=== PATIENT | male | born 1985 | race Caucasian/White ===

== ENCOUNTER 2017-09-21 20:46 | Observation (INO) | payer SELFPAY ==
[~2017-09-21] VITALS: Ht 175.3 cm; Wt 88.0 kg
[~2017-09-21 20:46] MED LIST changes: -FOLI-68 PO; -NICO4LOZ35 BC; -THIA100T2 PO
[2017-09-21] MEDS ORDERED: FAMOTIDINE(*) 20MG/50ML PREMIX 50 ML IVPB ONE (21:05)
[2017-09-21] MEDS ORDERED: PROMETHAZINE 25 MG/ML 1 ML AMP IVP ONE (21:05)
[2017-09-21] MEDS ORDERED: NS(*) 0.9% 1000 ML BAG 1,000 ML IV ONE (21:05)
--- NOTE | 2017-09-21 21:05 | EKG ---
FACILITY: [facility] [place] PATIENT NAME: DAVON MCKENZIE : [id number] MR: [id number] V: [id number] EXAM DATE: ORDERING PHYSICIAN: CARLOS ALBERTO BOWER TECHNOLOGIST: RADHA Bailey Reason : CARDIAC Blood Pressure : / mmHG Vent. Rate : 099 BPM Atrial Rate : 099 BPM P-R Int : 156 ms QRS Dur : 102 ms QT Int : 350 ms P-R-T Axes : 059 024 033 degrees QTc Int : 449 ms Sinus rhythm Decreased R wave progression anteriorly Nonspecific ST findings No previous ECGs available Confirmed by SOSA PEREZ ([id number]) on 09/22/2017 5:34:21 AM Referred By: Confirmed By:SOSA PEREZ
--- NOTE | 2017-09-21 21:16 | ER Report ---
History and Physical Time Seen By MD: 20:59 Hx. of Stated Complaint: L side chest pain and arm pain, vomiting blood past 3 days, drank 750 ml vodka today HPI/ROS CHIEF COMPLAINT: Left-sided chest pain HISTORY OF PRESENT ILLNESS: 32-year-old male p/w L chest pain and presents with left-sided chest L arm numbness assoc with hematemesis and coffee grounds appearance, black stools for unknown duration. Admits to drinking vodka/ whiskey "anything I can get my hands on" 750mL/day for 10 years. Admits to prior detox. Does not want detox today. Here due to nausea. c/o anxiety, ptsd , ocd, and states he lost his son. REVIEW OF SYSTEMS: Constitutional: No fever, no chills. Eyes: No discharge. ENT: "bleeding from my throat" Cardiovascular: no palpitations Respiratory: No cough, no shortness of breath. Gastrointestinal: otherwise negative Genitourinary: No hematuria. Musculoskeletal: No back pain. Skin: No rashes. Neurological: No headache. Allergies: Coded Allergies: Penicillins (Verified Allergy, Unknown, 06/11/15) amoxicillin (Verified Allergy, Unknown, 06/11/15) Home Meds Reported Medications Multivits,Th W-Fe,Other Min (THERA-M) 1 Each Tablet, 1 EACH PO 06/13/15 Trazodone Hcl (TRAZODONE HCL) 150 Mg Tablet, 150-300 MG PO QHS Y for INSOMNIA, # 60 1 Refill TAKE ONE TO TWO TABLETS EACH NIGHT NEEDED FOR INSOMNIA. 06/13/15 Hx Smoking: Yes Smoking Status: Current: Every Day Smoker Exposure to Second Hand Smoke?: Yes Hx Substance Use Disorder: Yes (IN THE PAST ) Hx Alcohol Use: Yes Constitutional Vital Sign - Last 24 Hours 09/21/17 09/21/17 09/21/17 09/21/17 20:46 20:47 21:01 21:16 Temp 99.8 Pulse 99 98 99 92 Resp 16 26 13 B/P (MAP) 144/99 Pulse Ox 94 95 96 94 O2 Delivery Room Air 09/21/17 09/21/17 09/21/17 09/21/17 21:19 21:31 21:46 22:01 Pulse 95 94 88 Resp 21 25 19 B/P (MAP) 134/104 (114) Pulse Ox 94 94 92 2/5/18 2/5/18 2/5/18 2/5/18 22:16 22:31 22:36 22:51 Pulse 88 92 90 93 Resp 12 14 15 16 Pulse Ox 94 93 96 94 09/21/17 09/21/17 09/21/17 09/21/17 23:06 23:13 23:14 23:19 Pulse 90 88 Resp 9 B/P (MAP) 132/78 (96) 110/81 (91) Pulse Ox 91 95 09/21/17 23:30 B/P (MAP) 112/89 (97) Physical Exam General Appearance: The patient is alert, has no immediate need for airway protection and no signs of toxicity. He appears intoxicated with alcohol on the breath Eyes: Pupils equal and round no pallor or injection. ENT, Mouth: Mucous membranes are moist. Respiratory: There are no retractions, lungs are clear to auscultation. Cardiovascular: Regular rate and rhythm. No murmurs gallops or rubs Gastrointestinal: Abdomen is soft and tender only in the epigastric region, no masses, bowel sounds normal. Neurological: Normal Skin: Warm and dry, no rashes. Musculoskeletal: Neck is supple non tender. Extremities are nontender, nonswollen and have full range of motion. No edema DIFFERENTIAL DIAGNOSIS: After history and physical exam differential diagnosis was considered for alcoholism alcoholic gastritis Che-Dumas syndrome upper GI bleed due to esophageal varices or other Medical Decision Making Data Points Result Diagram: 09/21/17199909/21/171999 Laboratory Hematology Test 09/21/17 20:00 Red Blood Count 6.13 M/uL (4.00-5.60) Mean Corpuscular Volume 93.6 fL (80.0-96.0) Mean Corpuscular Hemoglobin 32.6 pg (26.0-33.0) Mean Corpuscular Hemoglobin Concent 34.8 g/dL (32.0-36.0) Red Cell Distribution Width 15.4 % (11.5-14.5) Mean Platelet Volume 7.8 fL (7.2-11.1) Neutrophils (%) (Auto) 65.0 % (39.4-72.5) Lymphocytes (%) (Auto) 25.2 % (17.6-49.6) Monocytes (%) (Auto) 7.7 % (4.1-12.4) Eosinophils (%) (Auto) 1.3 % (0.4-6.7) Basophils (%) (Auto) 0.8 % (0.3-1.4) Nucleated RBC Relative Count (auto) 0.1 /100WBC Neutrophils # (Auto) 3.6 K/uL (2.0-7.4) Lymphocytes # (Auto) 1.4 K/uL (1.3-3.6) Monocytes # (Auto) 0.4 K/uL (0.3-1.0) Eosinophils # (Auto) 0.1 K/uL (0.0-0.5) Basophils # (Auto) 0.0 K/uL (0.0-0.1) Nucleated RBC Absolute Count (auto) 0.00 K/uL Sodium Level 143 mmol/L (137-145) Potassium Level 3.7 mmol/L (3.5-5.0) Chloride Level 99 mmol/L (98-107) Carbon Dioxide Level 25 mmol/L (22-30) Blood Urea Nitrogen 4 mg/dl (9-21) Creatinine 1.00 mg/dl (0.66-1.25) Glomerular Filtration Rate Calc > 60.0 Random Glucose 124 mg/dl (75-110) Calcium Level 9.1 mg/dl (8.4-10.2) Total Bilirubin 1.1 mg/dl (0.2-1.3) Aspartate Amino Transf (AST/SGOT) 89 U/L (0-35) Alanine Aminotransferase (ALT/SGPT) 116 U/L (0-56) Alkaline Phosphatase 116 U/L (0-126) Troponin I < 0.012 ng/ml B-Type Natriuretic Peptide < 5 pg/ml (0-100) Total Protein 8.7 gm/dl (6.3-8.2) Albumin 4.5 g/dl (3.5-5.0) Lipase 87 U/L (23-300) Serum Alcohol 305 mg/dl Chemistry Test 09/21/17 20:00 White Blood Count 5.5 k/uL (4.5-11.0) Red Blood Count 6.13 M/uL (4.00-5.60) Hemoglobin 20.0 g/dL (14.0-18.0) Hematocrit 57.4 % (42.0-52.0) Mean Corpuscular Volume 93.6 fL (80.0-96.0) Mean Corpuscular Hemoglobin 32.6 pg (26.0-33.0) Mean Corpuscular Hemoglobin Concent 34.8 g/dL (32.0-36.0) Red Cell Distribution Width 15.4 % (11.5-14.5) Platelet Count 225 K/uL (150-450) Mean Platelet Volume 7.8 fL (7.2-11.1) Neutrophils (%) (Auto) 65.0 % (39.4-72.5) Lymphocytes (%) (Auto) 25.2 % (17.6-49.6) Monocytes (%) (Auto) 7.7 % (4.1-12.4) Eosinophils (%) (Auto) 1.3 % (0.4-6.7) Basophils (%) (Auto) 0.8 % (0.3-1.4) Nucleated RBC Relative Count (auto) 0.1 /100WBC Neutrophils # (Auto) 3.6 K/uL (2.0-7.4) Lymphocytes # (Auto) 1.4 K/uL (1.3-3.6) Monocytes # (Auto) 0.4 K/uL (0.3-1.0) Eosinophils # (Auto) 0.1 K/uL (0.0-0.5) Basophils # (Auto) 0.0 K/uL (0.0-0.1) Nucleated RBC Absolute Count (auto) 0.00 K/uL Glomerular Filtration Rate Calc > 60.0 Calcium Level 9.1 mg/dl (8.4-10.2) Total Bilirubin 1.1 mg/dl (0.2-1.3) Aspartate Amino Transf (AST/SGOT) 89 U/L (0-35) Alanine Aminotransferase (ALT/SGPT) 116 U/L (0-56) Alkaline Phosphatase 116 U/L (0-126) Troponin I < 0.012 ng/ml B-Type Natriuretic Peptide < 5 pg/ml (0-100) Total Protein 8.7 gm/dl (6.3-8.2) Albumin 4.5 g/dl (3.5-5.0) Lipase 87 U/L (23-300) Serum Alcohol 305 mg/dl Toxicology Test 09/21/17 20:00 Serum Alcohol 305 mg/dl EKG/Imaging EKG Interpretation EKG was performed at 20:52 September 21 2017 and read by me normal sinus rhythm with ventricular rate of 99 normal LA QRS and QTc intervals no ST or T-wave changes to suggest ischemia or infarction overall impression: Normal EKG. ED Course/Re-evaluation ED Course Plan of care was discussed prior orders placed. Patient's states he does not want an NG tube at this time. I explained to him the benefits of the NG tube. Patient agreed to NG tube and 2 attempts were made and were unsuccessful per nursing staff. Patient refused further attempts due to pain. Patient requests nausea medicine for ongoing nausea. 09/21/2017 9:23:54 pm case discussed with Dr. Jose, endoscopist and surgeon conveyor maintenance mechanic. He saw the Patient in the ER. Patient refused endoscopy at this time. Brother arrived and explained that patient was suicidal with a machete at home and threats to use it on himself as well as other suicidal thoughts and intentions. Behavioral health was contacted to evaluate the patient. Brother called in after leaving and states patient is suicidal and has plan to use machete he has been unable to make him feel better despite taking to him to his house and Him to listen to music. He states that patient needs a psychiatric evaluation. The patient was seen by behavioral health specialist Von and the case was discussed with Dr. Yang. He will be difficult to clear psychiatrically due to recent alcohol intoxication. The patient contracts for safety and denies suicidality at this time. He is currently voluntary and not on ELIUD. The case was discussed with Angelo Hoyos who plans ICU admission for one- to-one and will continue treatment for alcoholic gastritis, hemoptysis and chest pain until medically cleared. Decision to Disposition Date: Sep 22, 2017 Decision to Disposition Time: 00:59 Depart Departure Latest Vital Signs Vital Signs Date Time Temp Pulse Resp B/P (MAP) Pulse Ox O2 Delivery O2 Flow Rate FiO2 09/21/17 23:30 112/89 (97) 09/21/17 23:19 88 95 09/21/17 23:06 9 09/21/17 20:47 99.8 Room Air Impression: Primary Impression: Alcohol intoxication Additional Impressions: Alcohol use disorder, severe, in controlled environment Depression with suicidal ideation Suicidal behavior Hemoptysis, unspecified Alcoholic gastritis with bleeding Condition: Improved Disposition: Admitted from ER Problem Qualifiers Primary Impression: Alcohol intoxication Complication of substance-induced condition: with unspecified complication Qualified Codes: F10.929 - Alcohol use, unspecified with intoxication, unspecified Additional Impressions: Suicidal behavior Attempted self-injury: without attempted self-injury Qualified Codes: R46.89 - Other symptoms and signs involving appearance and behavior CARLOS ALBERTO BOWER MD Sep 21, 2017 21:16
[2017-09-21 21:17] LABS: PLATELET COUNT, AUTOMATED 225 K/uL (150-450)
--- NOTE | 2017-09-21 22:52 | RADIOLOGY IMAGING REPORT ---
FACILITY: [facility] PATIENT NAME: Chilo Yates : 1985 MR: [id number] V: [id number] EXAM DATE: ORDERING PHYSICIAN: CARLOS ALBERTO BOWER TECHNOLOGIST: Location: [facility] [place] Patient: Chilo Yates : 1985 Visit/Account:[id number] Date of Sevice: 09/21/2017 CHEST SINGLE AP History: Chest pain FINDINGS: Comparison studies: None. Tubes and Lines: None. Lungs and pleura: Well aerated. No evidence of focal consolidation or pleural effusions. Mediastinum: normal. Cardiac silhouette: normal . Osseous structures: Unremarkable for age . IMPRESSION: Normal chest Report Dictated By: Glenn You MD at 09/21/2017 10:47 PM Report E-Signed By: Glenn You MD at 09/21/2017 10:48 PM [id number]
[2017-09-21] MEDS: GI COCKTAIL 60 ML BTL PO PRN ×2 (23:25→23:58)
[2017-09-21] MEDS ORDERED: ATRO/SCOPOL/HYOSCY/PB 5 ML ELX PO ONE (23:30)
[2017-09-21] MEDS ORDERED: MAG HYD/AL HYD/SIMETH 30ML UDC PO ONE (23:30)
[2017-09-21] MEDS ORDERED: LIDOCAINE 2% VISC SLN 15ML UDC PO ONE (23:30)
[2017-09-21] MEDS ORDERED: ONDANSETRON 4 MG ODT TABDP SL ONE (23:55)
[2017-09-22] VITALS (18 sets, daily range): BP systolic 107–131; BP diastolic 69–87; Ht 175.3 cm; Wt 88.0 kg
[2017-09-22] MEDS ORDERED: GI COCKTAIL 60 ML BTL PO PRN ×3 (00:55→07:45)
[2017-09-22] MEDS ORDERED: DIAZEPAM 10 MG TAB PO PRN (02:10)
[2017-09-22] MEDS ORDERED: PANTOPRAZOLE SOD 40 MG IV VIAL IVP ONE (02:10)
[2017-09-22] MEDS ORDERED: NS(*) 0.9% 1000 ML BAG 1,000 ML IV PRN (02:10)
--- NOTE | 2017-09-22 02:26 | History & Physical ---
History of Present Illness Chief Complaint Chest pain/nausea and vomiting History of Present Illness 32yo male with PMHx significant for PTSD and chronic alcoholism. He reports having periodic left chest pain over past few days. It is described as sharp, non-radiating. He has been having intermittent nausea with vomiting. His emesis has been bilious with occasional streaks/flecks of bright red blood. He denies any black or bloody stools. He has been drinking "anything" (whisky, vodka, beer ) heavily for past 10-12 years. He reports having a short period of abstinence for "maybe a year". He denies any withdrawal seizures, but has had significant withdrawal symptoms. It was reported to me that Mr. Yates was also suicidal, but he vehemently denies ever making any statements of suicide intent or thought. He states he would not hurt or kill himself. He was evaluated in the ER and found to have BAL 305 as well as modest elevation of his LFTs. His troponin and lipase are normal. His EKG and CXR are also unremarkable. He was recommended for admission. History Problems: (1) Alcohol abuse Status: Chronic (2) Alcohol withdrawal Status: Acute Home Meds Reported Medications Multivits,Th W-Fe,Other Min (THERA-M) 1 Each Tablet, 1 EACH PO 06/13/15 Trazodone Hcl (TRAZODONE HCL) 150 Mg Tablet, 150-300 MG PO QHS Y for INSOMNIA, # 60 1 Refill TAKE ONE TO TWO TABLETS EACH NIGHT NEEDED FOR INSOMNIA. 06/13/15 Allergies: Coded Allergies: Penicillins (Verified Allergy, Unknown, 06/11/15) amoxicillin (Verified Allergy, Unknown, 06/11/15) Patient History: Alcoholism in family FHx: suicide Uncle OCD (obsessive compulsive disorder) MOTHER Hx Smoking: No Exposure to Second Hand Smoke?: Yes Tobacco Used: Smokeless Caffeine Intake: Soda Caffeine/Cups Per Day: 3 Hx Alcohol Use: Yes Hx Substance Use Disorder: Yes Social Drug Use: Currently Social Drugs: Marijuana Review of Systems Constitutional: No Fever, No Chills, No Night Sweats Eyes: No Vision Change, No Loss of Vision Cardiovascular: Chest Pain, Palpitations Respiratory: No Shortness of Breath, No Cough Gastrointestinal: Nausea, Vomiting, No Diarrhea, No Dysphagia, Hematemesis, No Hematochezia, No Melena, Abdominal Pain Genitourinary: No Dysuria, No Hematuria Musculoskeletal: No Pain, No Sprain, No Impaired Mobility Psychiatric: Depression, Anxiety Exam Vital Signs Vital Signs Date Time Temp Pulse Resp B/P (MAP) Pulse Ox O2 Delivery O2 Flow Rate FiO2 09/21/17 23:30 112/89 (97) 09/21/17 23:19 88 95 09/21/17 23:06 9 09/21/17 20:47 99.8 Room Air General Appearance: Alert, Awake, No Acute Distress Neuro: No Gross deficits Eyes: PERRLA ENT: Oropharynx Clear Neck: No Masses Cardiovascular: Regular Rate and Rhythm, No Edema, No JVD Respiratory: Clear to Auscultation Chest: No Tenderness GI: Abd Soft and Non-Tender (BS present) : No CVA Tenderness Lymph: No Adenopathy Musculoskeletal: No Weakness/Pain Extremities: Warm, Perfused Integumentary: Skin Intact without Lesion / Mass Psych: Alert & Oriented X3 Medical Decision Making Data Points Result Diagram: 09/21/17199909/21/171999 Item Value Date Time Lipase 87 U/L 09/21/171999 Albumin 4.5 g/dl 09/21/171999 Total Protein 8.7 gm/dl H 09/21/171999 B-Type Natriuretic Peptide < 5 pg/ml 09/21/171999 Troponin I < 0.012 ng/ml 09/21/171999 Alkaline Phosphatase 116 U/L 09/21/171999 Alanine Aminotransferase (ALT/SGPT) 116 U/L H 09/21/171999 Aspartate Amino Transf (AST/SGOT) 89 U/L H 09/21/171999 Total Bilirubin 1.1 mg/dl 09/21/171999 Calcium Level 9.1 mg/dl 09/21/171999 Serum Alcohol 305 mg/dl 09/21/171999 EKG / Imaging EKG Interpretation Sinus rhythm with decreased R wave progression anteriorly no acute appearing ST- T findings Imaging PATIENT NAME: Chilo Yates : 1985 MR: [id number] V: [id number] EXAM DATE: ORDERING PHYSICIAN: CARLOS ALBERTO BOWER TECHNOLOGIST: Location: [facility] [place] Patient: Chilo Yates : 1985 Visit/Account:[id number] Date of Sevice: 09/21/2017 CHEST SINGLE AP History: Chest pain FINDINGS: Comparison studies: None. Tubes and Lines: None. Lungs and pleura: Well aerated. No evidence of focal consolidation or pleural effusions. Mediastinum: normal. Cardiac silhouette: normal . Osseous structures: Unremarkable for age . IMPRESSION: Normal chest Report Dictated By: Glenn You MD at 09/21/2017 10:47 PM Report E-Signed By: Glenn You MD at 09/21/2017 10:48 PM [id number] Assessment and Plan Problems: (1) Suicidal ideation Status: Acute Assessment & Plan: He denies any suicidal intentions or thoughts at this time. Will monitor closely. May need to have psychiatry evaluate him to clear all of this up. (2) Alcohol abuse Status: Chronic Assessment & Plan: We discussed possible detox and he is unsure if he wants to quit. Will place him on CIWA protocol and use Valium if needed. Will also give B vitamin supplements. Will need to have the substance abuse counselor see him. (3) Chest pain Status: Acute Assessment & Plan: His initial evaluation is unremarkable. Will recheck troponin. He most likely has some alcoholic gastritis responsible for his pain as well as the nausea/vomiting with streaks of blood. He was seen by Dr. Jose in the ER regarding possible endoscopy, but the patient refused. Will place him on Protonix and Carafate. Start with clear liquid diet. Watch closely. Venous Thromboembolism Antithrombotics Is Pt On Any Antithrombotics?: No Prophylaxis Tx Contraindicated Pharmacological Contraindicati: Active Bleeding (hematemesis) Exam Sepsis Risk: No Definite Risk SOSA PEREZ MD Sep 22, 2017 02:25
[2017-09-22 02:28] LABS: PLATELET COUNT, AUTOMATED 184 K/uL (150-450)
[2017-09-22] MEDS: PROMETHAZINE 25 MG/ML 1 ML AMP IVP PRN ×2 (02:41→08:29)
[2017-09-22] MEDS: SUCRALFATE 1 GM TAB PO SCH ×2 (06:13→10:21)
[2017-09-22 07:20] LABS: PLATELET COUNT, AUTOMATED 166 K/uL (150-450)
[2017-09-22] MEDS: DIAZEPAM 10 MG TAB PO PRN ×3 (07:30→10:21)
[2017-09-22] MEDS ORDERED: FOLIC ACID 1 MG TAB PO SCH (09:00)
[2017-09-22] MEDS ORDERED: THIAMINE HCL 200 MG/2 ML INJ IVP SCH (09:00)
[2017-09-22] MEDS ORDERED: PANTOPRAZOLE SOD 40 MG TABEC PO SCH (09:00)
--- NOTE | 2017-09-22 09:49 | Hospitalist Depart ---
Discharge Summary Reason for Hosp/Final Diag: (1) Suicidal ideation Status: Acute Hospital Course & Plan: He denies any suicidal intentions or thoughts at this time. (2) Alcohol abuse Status: Chronic Hospital Course & Plan: [facility] He should continue on thiamine and CIWA protocol. (3) Chest pain Status: Acute Hospital Course & Plan: His EKG and troponin series were negative. Departure Latest Vital Signs Vital Signs 09/22/17 09/22/17 09/22/17 09/22/17 07:00 07:30 09:00 09:27 Temp 97.7 Pulse 95 Resp 20 B/P (MAP) 110/73 (85) Pulse Ox 94 O2 Delivery Room Air O2 Flow Rate 1.0 Weight (Pounds): 194 Result Diagram: 09/22/1708 09/22/17707 Condition: Improved Discharge: [facility] Discharge Instructions Home Meds Reported Medications Multivits,Th W-Fe,Other Min (THERA-M) 1 Each Tablet, 1 EACH PO 06/13/15 Trazodone Hcl (TRAZODONE HCL) 150 Mg Tablet, 150-300 MG PO QHS Y for INSOMNIA, # 60 1 Refill TAKE ONE TO TWO TABLETS EACH NIGHT NEEDED FOR INSOMNIA. 06/13/15 Diet: Regular Activity: As Tolerated Copies to: MANDI SALINAS MD Venous Thromboembolism Antithrombotics Is Pt On Any Antithrombotics?: No JANEE ARAGON DO Sep 22, 2017 09:49
[2017-09-22] MEDS ORDERED: INFLUENZA VIRUS VAC 0.5 ML SYR IM ONLY ONE ×2 (10:00→10:15)
== END 2017-09-22 10:51 ==
LOC: ER 21:05 → ICU 09-22 00:33 → INTOOBSV 09-22 00:33
PROVIDERS: ADMIT Internal Medicine; ATTEND Internal Medicine
DX: F10.229 Alcohol dependence with intoxication, unspecified (principal); F32.9 Major depressive disorder, single episode, unspecified; R04.2 Hemoptysis; R46.89 Other symptoms and signs involving appearance and behavior; K29.21 Alcoholic gastritis with bleeding; Z23 Encounter for immunization
CPT/HCPCS: 36415; 71045; 80320; 83690; 83880; 84484; 85025; 90471; 90674; 93005; 96365; 96375; 99285; C9113; G0378; J2550; J3411; J3490; J7030; S0119; 82040; 82247; 82310; 82374; 82435; 82565; 82947; 84075; 84132; 84155; 84295; 84450; 84460; 84520

== ENCOUNTER → 2017-09-21 | Outpatient (CLI) | payer SELFPAY ==
[~2017-09-21] MED LIST: CLIN300C99 PO; FOLI-68 PO; HYDR25CA13 PO; IBUP200C74 PO; MIRT-1 PO; MIRT-17 PO; MULT-1379 PO; MULT-7 PO; NICO4LOZ35 BC; OXYC-865 PO; THIA100T2 PO; TRAZ-163 PO; TRAZ150T8 PO
[2017-09-22 08:30] VITALS: BMI 28.6
== END ==
LOC: AMB 20:24
PROVIDERS: ATTEND Nurse Practitioner
DX: R07.9 Chest pain, unspecified (principal); F10.129 Alcohol abuse with intoxication, unspecified; R11.10 Vomiting, unspecified
CPT/HCPCS: A0425; A0427

== ENCOUNTER 2017-09-22 10:51 | Inpatient (IN) | payer SELFPAY ==
[~2017-09-22] VITALS: Ht 177.8 cm; Wt 90.7 kg
[2017-09-22 08:30] VITALS: Ht 177.8 cm; Wt 90.7 kg
[2017-09-22 11:00] VITALS: BP 122/89
[2017-09-22 12:05] VITALS: BP 120/82
[2017-09-22 13:34] VITALS: BP 122/84
[2017-09-22] MEDS: DIAZEPAM 10 MG TAB PO PRN ×2 (13:46→19:36)
[2017-09-22] MEDS: NICOTINE POLACRILEX 4 MG LOZG PO PRN (13:46)
[2017-09-22 14:30] VITALS: BP 102/88
[2017-09-22 19:13] VITALS: BP 129/89
[2017-09-23 03:15] VITALS: BP 121/84
[2017-09-23] MEDS: DIAZEPAM 10 MG TAB PO PRN ×5 (03:27→21:08)
[2017-09-23] MEDS: MULTIVITAMINS PO SCH (08:09)
[2017-09-23] MEDS: THIAMINE HCL 100 MG TAB PO SCH (08:09)
[2017-09-23] MEDS: FOLIC ACID 1 MG TAB PO SCH (08:09)
[2017-09-23 08:20] VITALS: BP 118/88
[2017-09-23 13:00] VITALS: BP 130/90
[2017-09-23] MEDS: NICOTINE POLACRILEX 4 MG LOZG PO PRN ×2 (15:20→21:08)
[2017-09-23 15:59] VITALS: BP 148/84
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
[2017-09-23 20:30] VITALS: BP 119/76
[2017-09-24] MEDS: DIAZEPAM 10 MG TAB PO PRN ×3 (03:19→05:37)
[2017-09-24 03:21] VITALS: BP 135/99
[2017-09-24] MEDS: THIAMINE HCL 100 MG TAB PO SCH (08:13)
[2017-09-24] MEDS: FOLIC ACID 1 MG TAB PO SCH (08:13)
[2017-09-24] MEDS: MULTIVITAMINS PO SCH (08:13)
[2017-09-24 08:25] VITALS: BP 124/84
[2017-09-24] MEDS ORDERED: FOLI-68 PO (11:24)
[2017-09-24] MEDS ORDERED: THIA100T2 PO (11:25)
[2017-09-24] MEDS ORDERED: NICO4LOZ35 BC (11:26)
[2017-09-24 12:36] VITALS: BP 116/82
--- NOTE | 2017-09-25 17:52 | DISCHARGE SUMMARY ---
DATE OF ADMISSION: September 22, 2017 DATE OF DISCHARGE: September 24, 2017 FINAL DIAGNOSES 1. Alcohol use disorder, severe. 2. Alcohol withdrawal, considered complete. 3. Substance-induced mood disorder, considered resolved. The patient has a supportive family. 4. Ongoing social stressors related to alcohol use disorder. For this discharge summary, this patient was seen in the a.m. of September 24, 2017, at approximately 1000 hours. REASON FOR ADMISSION This is a 32-year-old male who is known from previous [facility] admissions under similar circumstances, most recently in late 2014. The patient at this time came to the Emergency Room with chest pain and complaints of hematemesis. The patient was evaluated and put in the ICU for overnight observation. The patient was cleared medically. The patient then agreed to voluntary admission to [facility] to complete alcohol withdrawal. During the patient's stay, the patient was calm, cooperative, polite, and engaging well with the therapist and this provider. The patient was also allowing family members who had concerns of the patient's intent to harm himself while intoxicated be involved in his treatment. This included the patient's brother, the patient's brother's fiance, and the patient's mother. The patient's alcohol withdrawal was considered moderate to severe in nature, treated with diazepam per [facility] protocol. The patient's withdrawal was treated to completion. It was known that the patient's mood continued to improve rapidly in the absence of alcohol. The patient was strongly encouraged to enter residential rehab; however, the patient declined it at this time. However , he agreed to outpatient services through [facility] and to abstain from alcohol. The patient was no longer having suicidal ideations. Mood was improved and alcohol withdrawal considered complete. The patient was discharged to home. PHYSICAL EXAMINATION Please see ICU and emergency room notes. GENERAL: Overall, a 32-year-old male in no acute medical distress. VITAL SIGNS: At time of admission, temperature 99.8, pulse 98, respiratory rate 16, blood pressure 144/99, pulse oximetry 95% on room air. At time of discharge, vital signs showed temperature 97.5, pulse 76, respiratory rate 18, blood pressure 116/82, and pulse oximetry 97% on room air. LABORATORY DATA On September 21, 2017, red blood cells shown to be elevated at 6.13, hemoglobin and hematocrit elevated at 20.0 and 57.4, normal platelet count in normal limits at 224 at time of admission, and MCV and MCH also in normal limits. Chemistry panel on September 21, 2017, notable for AST elevated to 89 and ALT elevated at 116. Toxicology screen notable for serum alcohol level of 305 upon admission. MENTAL STATUS EXAMINATION AT TIME OF DISCHARGE GENERAL APPEARANCE, BEHAVIOR, AND ATTITUDE: This is a cooperative, polite, 32- year-old male in no acute distress. No psychomotor agitation or retardation. No bizarre mannerisms or tics. The patient is making good eye contact and interacting well with family members, this provider, and treatment team staff. SPEECH: Within normal limits. Regular rate, rhythm, volume, and tone. MOOD: Described as improved and good. AFFECT: Full at times and mood congruent. THOUGHT PROCESSES: Logical, goal directed. No loose associations or flight of ideas. THOUGHT CONTENT: Free of auditory or visual hallucinations, ideas of reference , thought broadcasting, delusions, obsessions, or compulsions. The patient is adamantly denying suicidal or homicidal ideation. SENSORIUM: Clear. COGNITION: Alert and oriented to person, place, time, and situation. MEMORY: Immediate, recent, and remote estimated intact. INTELLIGENCE: Average based on interview. INSIGHT AND JUDGMENT: Considered grossly intact in the absence of alcohol use and appropriate for ongoing outpatient care. RESULTS OF TESTS AND IMAGING Chest x-ray on September 21, 2017, was unremarkable. EKG, please see electronic report. Overall unremarkable as well. CONSULTATIONS None. TREATMENT The patient received medications and participated in individual and group therapy. HOSPITAL COURSE The patient voluntarily transferred from the ICU to [facility] to complete alcohol withdrawal. The patient did not want to attend residential treatment at this time; however, the patient did agree to abstain and further outpatient support. The patient was exhibiting no parasuicidal behaviors on the unit. The patient is adamantly denying any suicidal ideation, and the patient took an active role in his treatment. CONDITION ON DISCHARGE Stable, considered minimal risk to himself or others and appropriate for ongoing outpatient care. DISPOSITION The patient is discharged to home. He would follow up with outpatient medication evaluation and therapy management. The patient would abstain from all alcohol and consider residential rehab. He was given the crisis line should symptoms return. DISCHARGE MEDICATIONS At time of discharge, the patient would remain on: 1. Thiamine 100 mg daily. 2. Folic acid 1 mg daily. 3. Multivitamin with minerals daily. 4. He could use [id number] nicotine replacement for smoking cessation. Risks, benefits, and alternatives of above discharge plan were discussed. Informed consent was given to proceed with the above discharge plan by this competent patient and the patient's family members present at time of discharge. Crisis line was given should symptoms return. MTDD
== END 2017-09-24 14:32 | disposition home or self-care (01) | DRG 897 ==
LOC: UNDOADMIN 10:51 → BHS 10:51
PROVIDERS: ADMIT Psychiatry & Neurology Psychiatry; ATTEND Psychiatry & Neurology Psychiatry
DX: F10.239 Alcohol dependence with withdrawal, unspecified (principal); F10.24 Alcohol dependence with alcohol-induced mood disorder; Y90.8 Blood alcohol level of 240 mg/100 ml or more; Z88.0 Allergy status to penicillin

== ENCOUNTER 2018-03-15 21:35 | Emergency (ER) | payer SELFPAY ==
[2017-09-22 08:30] VITALS: Wt 90.7 kg
[~2018-03-15 21:35] MED LIST changes: +FOLI-68 PO; +NICO4LOZ35 BC; +THIA100T2 PO; -TRAZ-163 PO; +TRAZ100T31 PO
--- NOTE | 2018-03-15 21:45 | ER Report ---
History and Physical Time Seen By MD: 21:44 HPI/ROS CHIEF COMPLAINT: leg pain HISTORY OF PRESENT ILLNESS: This is a 33 year old male. He has had some pain in the medial right thigh for a couple of days now. Does not remember an injury. Pain worse with movement. Worried about possible blood clot. Normal sensation. No swelling. No shortness of breath or chest pain. Allergies: Coded Allergies: Penicillins (Verified Allergy, Unknown, 03/15/18) amoxicillin (Verified Allergy, Unknown, 03/15/18) Uncoded Allergies: SHELLFISH (Allergy, Mild, 09/22/17) UNCOOKED FRUIT (Allergy, Mild, 09/22/17) Home Meds Active Scripts Oxycodone Hcl/Acetaminophen (PERCOCET 5-325 MG TABLET) 1 Each Tablet, 1 EACH PO Q4H Y for PAIN, #12 TAB 0 Refills Prov:STEPHEN JEREZ MD 03/15/18 Discontinued Reported Medications Nicotine Polacrilex (NICOTINE LOZENGE) 4 Mg Lozenge, 4 MG BC Q1-2H Y for NICOTINE REPLACEMENT, LOZENGE 09/24/17 Thiamine Mononitrate (VITAMIN B-1) 100 Mg Tablet, 100 MG PO QDAY 09/24/17 Folic Acid (FOLIC ACID) 1 Mg Tablet, 1 MG PO QDAY, TAB 09/24/17 Multivits,Th W-Fe,Other Min (THERA-M) 1 Each Tablet, 1 EACH PO DAILY 06/13/15 Reviewed Nurses Notes: Yes Exposure to Second Hand Smoke?: No Hx Substance Use Disorder: Yes (IN THE PAST ) Hx Alcohol Use: Yes Constitutional Vital Sign - Last 24 Hours 03/15/18 21:38 Temp 97.4 Pulse 92 Resp 16 B/P (MAP) 137/96 Pulse Ox 98 O2 Delivery Room Air Physical Exam General Appearance: The patient is alert, has no immediate need for airway protection and no current signs of toxicity. Eyes: Pupils equal and round no injection. ENT: Normal oral mucosa. Moist mucous membranes. Respiratory: Lungs clear to auscultation. Cardiac: regular rate and rhythm. Normal peripheral pulses and cap refill. Gastrointestinal: No abdominal tenderness. Soft, nondistended. Musculoskeletal: Pain wtih palpation of inner thigh. Normal range of motion. Skin: No rashes or lesions. DIFFERENTIAL DIAGNOSIS: After history and physical exam differential diagnosis was considered for leg pain, concern for possible blood clot versus musculoskeletal strain. Medical Decision Making Data Points Result Diagram: 03/15/18222103/15/182221 Laboratory Hematology Test 03/15/18 22:22 Red Blood Count 5.54 M/uL (4.00-5.60) Mean Corpuscular Volume 91.7 fL (80.0-96.0) Mean Corpuscular Hemoglobin 32.4 pg (26.0-33.0) Mean Corpuscular Hemoglobin Concent 35.4 g/dL (32.0-36.0) Red Cell Distribution Width 14.4 % (11.5-14.5) Mean Platelet Volume 7.8 fL (7.2-11.1) Neutrophils (%) (Auto) 59.8 % (39.4-72.5) Lymphocytes (%) (Auto) 28.4 % (17.6-49.6) Monocytes (%) (Auto) 7.4 % (4.1-12.4) Eosinophils (%) (Auto) 3.6 % (0.4-6.7) Basophils (%) (Auto) 0.8 % (0.3-1.4) Nucleated RBC Relative Count (auto) 0.1 /100WBC Neutrophils # (Auto) 3.6 K/uL (2.0-7.4) Lymphocytes # (Auto) 1.7 K/uL (1.3-3.6) Monocytes # (Auto) 0.4 K/uL (0.3-1.0) Eosinophils # (Auto) 0.2 K/uL (0.0-0.5) Basophils # (Auto) 0.0 K/uL (0.0-0.1) Nucleated RBC Absolute Count (auto) 0.01 K/uL Erythrocyte Sedimentation Rate 11 mm/HOUR (0-15) Sodium Level 141 mmol/L (137-145) Potassium Level 3.9 mmol/L (3.5-5.0) Chloride Level 97 mmol/L (98-107) Carbon Dioxide Level 29 mmol/L (22-30) Blood Urea Nitrogen 4 mg/dl (9-21) Creatinine 0.90 mg/dl (0.66-1.25) Glomerular Filtration Rate Calc > 60.0 Random Glucose 98 mg/dl (75-110) Calcium Level 9.3 mg/dl (8.4-10.2) Total Bilirubin 0.8 mg/dl (0.2-1.3) Aspartate Amino Transf (AST/SGOT) 38 U/L (0-35) Alanine Aminotransferase (ALT/SGPT) 45 U/L (0-56) Alkaline Phosphatase 73 U/L (0-126) Total Creatine Kinase 57 U/L (55-170) C-Reactive Protein < 0.5 mg/dl (<1.0) Total Protein 8.6 g/dl (6.3-8.2) Albumin 4.8 g/dl (3.5-5.0) Chemistry Test 03/15/18 22:22 White Blood Count 6.0 k/uL (4.5-11.0) Red Blood Count 5.54 M/uL (4.00-5.60) Hemoglobin 18.0 g/dL (14.0-18.0) Hematocrit 50.8 % (42.0-52.0) Mean Corpuscular Volume 91.7 fL (80.0-96.0) Mean Corpuscular Hemoglobin 32.4 pg (26.0-33.0) Mean Corpuscular Hemoglobin Concent 35.4 g/dL (32.0-36.0) Red Cell Distribution Width 14.4 % (11.5-14.5) Platelet Count 205 K/uL (150-450) Mean Platelet Volume 7.8 fL (7.2-11.1) Neutrophils (%) (Auto) 59.8 % (39.4-72.5) Lymphocytes (%) (Auto) 28.4 % (17.6-49.6) Monocytes (%) (Auto) 7.4 % (4.1-12.4) Eosinophils (%) (Auto) 3.6 % (0.4-6.7) Basophils (%) (Auto) 0.8 % (0.3-1.4) Nucleated RBC Relative Count (auto) 0.1 /100WBC Neutrophils # (Auto) 3.6 K/uL (2.0-7.4) Lymphocytes # (Auto) 1.7 K/uL (1.3-3.6) Monocytes # (Auto) 0.4 K/uL (0.3-1.0) Eosinophils # (Auto) 0.2 K/uL (0.0-0.5) Basophils # (Auto) 0.0 K/uL (0.0-0.1) Nucleated RBC Absolute Count (auto) 0.01 K/uL Erythrocyte Sedimentation Rate 11 mm/HOUR (0-15) Glomerular Filtration Rate Calc > 60.0 Calcium Level 9.3 mg/dl (8.4-10.2) Total Bilirubin 0.8 mg/dl (0.2-1.3) Aspartate Amino Transf (AST/SGOT) 38 U/L (0-35) Alanine Aminotransferase (ALT/SGPT) 45 U/L (0-56) Alkaline Phosphatase 73 U/L (0-126) Total Creatine Kinase 57 U/L (55-170) C-Reactive Protein < 0.5 mg/dl (<1.0) Total Protein 8.6 g/dl (6.3-8.2) Albumin 4.8 g/dl (3.5-5.0) EKG/Imaging Imaging VENOUS DOPP LOW RIGHT EXTREMIT HISTORY: Leg pain in right groin/medial thigh. No known injury. COMPARISON STUDIES: None. FINDINGS: Grayscale compression, duplex and color Doppler interrogation of the right lower extremity deep veins from common femoral vein to proximal calf was performed. The greater saphenous vein in the ipsilateral proximal thigh was evaluated using similar technique. Right lower extremity: Common femoral vein: Normal. Deep femoral vein: Normal. Femoral vein: Normal. Popliteal vein: Normal. Visualized deep calf veins: Normal. Greater saphenous vein in the proximal thigh: Normal. Popliteal fossa: Normal. IMPRESSION: 1. There is no deep venous thrombosis of the right lower extremity. Report Dictated By: Jaylin Estrada at 03/15/2018 11:00 PM ED Course/Re-evaluation ED Course Labs and imaging unremarkable. Decision to Disposition Date: Mar 15, 2018 Decision to Disposition Time: 23:21 Depart Departure Latest Vital Signs Vital Signs Date Time Temp Pulse Resp B/P (MAP) Pulse Ox O2 Delivery O2 Flow Rate FiO2 03/15/18 21:38 97.4 92 16 137/96 98 Room Air Impression: Primary Impression: Muscle strain Condition: Improved Disposition: HOME OR SELF-CARE New Scripts Oxycodone Hcl/Acetaminophen (PERCOCET 5-325 MG TABLET) 1 Each Tablet 1 EACH PO Q4H Y for PAIN, #12 TAB 0 Refills Prov: STEPHEN JEREZ MD 03/15/18 Patient Instructions: Muscle Strain (ED) Additional Instructions: Ibuprofen 200mg over the counter tablets, take 4 tablets three times a day with food. Percocet 5/325, one every 4 hours as needed for pain. Apply ice 20 minutes every 1-2 hours while awake. Begin gentle range of motion exercises. STEPHEN JEREZ MD Mar 15, 2018 21:45
[2018-03-15 22:26] LABS: PLATELET COUNT, AUTOMATED 205 K/uL (150-450)
--- NOTE | 2018-03-15 23:05 | RADIOLOGY IMAGING REPORT ---
FACILITY: [facility] PATIENT NAME: Chilo Yates : 05/09/1984 MR: [id number] V: [id number] EXAM DATE: ORDERING PHYSICIAN: STEPHEN JEREZ TECHNOLOGIST: Location: [facility] Patient: Chilo Yates : 05/09/1984 Visit/Account:[id number] Date of Sevice: 03/15/2018 VENOUS DOPP LOW RIGHT EXTREMIT HISTORY: Leg pain in right groin/medial thigh. No known injury. COMPARISON STUDIES: None. FINDINGS: Grayscale compression, duplex and color Doppler interrogation of the right lower extremity deep veins from common femoral vein to proximal calf was performed. The greater saphenous vein in the ipsilater al proximal thigh was evaluated using similar technique. Right lower extremity: Common femoral vein: Normal. Deep femoral vein: Normal. Femoral vein: Normal. Popliteal vein: Normal. Visualized deep calf veins: Normal. Greater saphenous vein in the proximal thigh: Normal. Popliteal fossa: Normal. IMPRESSION: 1. There is no deep venous thrombosis of the right lower extremity. Report Dictated By: Jaylin Estrada at 03/15/2018 11:00 PM Report E-Signed By: Jaylin Estrada at 03/15/2018 11:02 PM [id number]
[2018-03-15] MEDS ORDERED: OXYC-865 PO (23:22)
[2018-03-15] MEDS ORDERED: oxyCODONE/ACETAMIN 5/325MG TH 2 TAB/BOTTLE PO ONE (23:25)
[2018-03-15 23:32] VITALS: BP 131/88
== END 2018-03-15 23:32 | disposition home or self-care (01) ==
LOC: EDBD 21:35 → ER 22:38
DX: S76.911A Strain of unspecified muscles, fascia and tendons at thigh level, right thigh, initial encounter (principal); X58.XXXA Exposure to other specified factors, initial encounter
CPT/HCPCS: 82040; 82247; 82310; 82374; 82435; 82550; 82565; 82947; 84075; 84132; 84155; 84295; 84450; 84460; 84520; 85025; 85651; 86140; 99283

== ENCOUNTER 2018-04-07 17:41 | Emergency (ER) | payer SELFPAY ==
[2017-09-22 08:30] VITALS: Wt 79.4 kg
[2018-04-07] MEDS ORDERED: THIAMINE HCL(*) 200 MG/2 ML IN 100 MG, FOLIC ACID(*) 50 MG/10 ML INJ 1 MG, MULTIVITAMIN... IV ONE (17:54)
[2018-04-07] MEDS ORDERED: LORazepam 2 MG/ML VIAL IVP ONE (17:55)
--- NOTE | 2018-04-07 18:00 | EKG ---
[place] [facility] [place]IENT NAME: DAVON MCKENZIE : [id number] MR: [id number] V: [id number] EXAM DATE: ORDERING PHYSICIAN: SUNDEEP ALDANA TECHNOLOGIST: IRENE Bailey Reason : Blood Pressure : / mmHG Vent. Rate : 121 BPM Atrial Rate : 121 BPM P-R Int : 148 ms QRS Dur : 098 ms QT Int : 310 ms P-R-T Axes : 072 018 041 degrees QTc Int : 440 ms Sinus tachycardia Otherwise normal ECG When compared with ECG of 21-SEP-2017 20:52, Previous ECG has undetermined rhythm, needs review Confirmed by JANEE ARAGON ([id number]) on 04/08/2018 6:38:38 AM Referred By: Confirmed By:JANEE ARAGON
--- NOTE | 2018-04-07 18:02 | ER Report ---
History and Physical Time Seen By MD: 17:57 Hx. of Stated Complaint: PATIENT REPORTS THAT HE URINATED BLOOD EARLIER TODAY. IN THE MIDST OF QUESTIONING HE REPORTED THAT HE HAD CHEST PAIN EARLIER TODAY HPI/ROS CHIEF COMPLAINT: Chest pain, alcoholism, heat blood HISTORY OF PRESENT ILLNESS: 34-year-old male alcoholic presents ambulatory to the ER complaining of chest pain earlier today. He also notes left flank pain with hematuria. Patient has a proximally 5 stiff. Heart alcoholic drinks per day. He's been admitted numerous [facility] to [facility] for detox and for suicidal ideation. Patient reports that he has previously been diagnosed with a bladder cyst, but he was fearful following up for cystoscope to rule out malignancy. This was many years ago in [place]. Patient denies history of kidney stones. He is not taking any blood thinners, but he did take 3 full strength aspirin 325 mg for his chest pain earlier today. Patient states he has a history of a deformed aortic valve, likely mitral valve prolapse. He is unable recall the specific diagnosis. Patient notes some shortness of breath no diaphoresis or nausea. Patient reports that he is undergoing alcohol withdrawal. His last drink was like 18 hours ago. REVIEW OF SYSTEMS: Respiratory: As above Cardiovascular: As above Gastrointestinal: No vomiting, no abdominal pain. Musculoskeletal: As above Allergies: Coded Allergies: Penicillins (Verified Allergy, Unknown, 03/15/18) amoxicillin (Verified Allergy, Unknown, 03/15/18) Uncoded Allergies: SHELLFISH (Allergy, Mild, 09/22/17) UNCOOKED FRUIT (Allergy, Mild, 09/22/17) Home Meds Discontinued Scripts Oxycodone Hcl/Acetaminophen (PERCOCET 5-325 MG TABLET) 1 Each Tablet, 1 EACH PO Q4H PRN for PAIN, #12 TAB 0 Refills Prov:STEPHEN JEREZ MD 03/15/18 Reviewed Nurses Notes: Yes Old Medical Records Reviewed: Yes Exposure to Second Hand Smoke?: No Hx Substance Use Disorder: Yes (when he was a teenager he reported some drug use) Hx Alcohol Use: Yes Constitutional Vital Sign - Last 24 Hours 04/07/18 04/07/18 04/07/18 04/07/18 17:46 17:48 17:56 18:00 Pulse 127 118 Resp 24 22 B/P (MAP) 129/90 (103) 129/90 123/92 (102) Pulse Ox 95 95 O2 Delivery Room Air 04/07/18 04/07/18 04/07/18 04/07/18 18:11 18:15 18:23 18:26 Pulse 116 104 Resp 16 14 B/P (MAP) 120/90 (100) 125/92 (103) Pulse Ox 96 92 04/07/18 04/07/18 04/07/18 04/07/18 18:30 18:41 18:46 19:00 Pulse 113 Resp 26 12 B/P (MAP) 123/86 (98) 122/90 (101) Pulse Ox 91 04/07/18 04/07/18 04/07/18 04/07/18 19:01 19:15 19:16 19:30 Temp 97.6 Pulse 106 106 Resp 18 B/P (MAP) 126/87 (100) Pulse Ox 94 92 04/07/18 04/07/18 04/07/18 04/07/18 19:30 19:31 19:45 19:46 Pulse 105 ??? B/P (MAP) 117/85 (96) 121/90 (100) Pulse Ox 94 Intake and Output 04/07/18 04/07/18 04/08/18 15:00 23:00 07:00 Intake Total 1000 ml Balance 1000 ml Physical Exam Vital signs stable, tachycardic General Appearance: The patient is alert, has no immediate need for airway protection and no current signs of toxicity. Skin warm, dry, slightly pale appearing HEENT: Pupils equal and round no injection. Oropharynx with mild erythema, no exudate or petechiae Respiratory: Chest is non tender, lungs are clear to auscultation. No chest wall tenderness Cardiac: regular rate and rhythm, tachycardic, no murmur Gastrointestinal: Abdomen is soft and non tender, no masses, bowel sounds normal. Musculoskeletal: Neck: Neck is supple and non tender. No JVD, no lymphadenopathy Extremities have full range of motion and are non tender. No edema, no calf tenderness Skin: No rashes or lesions. DIFFERENTIAL DIAGNOSIS: After history and physical exam differential diagnosis was considered for chest pain including but not limited to myocardial ischemia, pericarditis pulmonary embolus, chest wall pain, pleural inflammation and pulmonary infectious causes. Additionally,flank pain including but not limited to musculoskeletal causes, kidney stone, pyelonephritis, shingles, and intra- abdominal causes such as diverticulitis and appendicitis. Medical Decision Making Data Points Result Diagram: 04/07/18 1800 04/07/18 1800 Laboratory Hematology Test 04/07/18 18:00 04/07/18 19:02 Red Blood Count 5.59 M/uL (4.00-5.60) Mean Corpuscular Volume 92.5 fL (80.0-96.0) Mean Corpuscular Hemoglobin 33.2 pg (26.0-33.0) Mean Corpuscular Hemoglobin Concent 35.9 g/dL (32.0-36.0) Red Cell Distribution Width 15.5 % (11.5-14.5) Mean Platelet Volume 6.7 fL (7.2-11.1) Neutrophils (%) (Auto) 66.8 % (39.4-72.5) Lymphocytes (%) (Auto) 23.9 % (17.6-49.6) Monocytes (%) (Auto) 7.2 % (4.1-12.4) Eosinophils (%) (Auto) 1.5 % (0.4-6.7) Basophils (%) (Auto) 0.6 % (0.3-1.4) Nucleated RBC Relative Count (auto) 0.1 /100WBC Neutrophils # (Auto) 3.9 K/uL (2.0-7.4) Lymphocytes # (Auto) 1.4 K/uL (1.3-3.6) Monocytes # (Auto) 0.4 K/uL (0.3-1.0) Eosinophils # (Auto) 0.1 K/uL (0.0-0.5) Basophils # (Auto) 0.0 K/uL (0.0-0.1) Nucleated RBC Absolute Count (auto) 0.00 K/uL Prothrombin Time 12.7 seconds (12.0-14.4) Prothromb Time International Ratio 0.95 Activated Partial Thromboplast Time 25 seconds (23-35) D-Dimer Quantitative (PE/DVT) 0.54 ug/ml (0-0.50) Sodium Level 142 mmol/L (137-145) Potassium Level 3.8 mmol/L (3.5-5.0) Chloride Level 99 mmol/L (98-107) Carbon Dioxide Level 28 mmol/L (22-30) Blood Urea Nitrogen 4 mg/dl (9-21) Creatinine 1.00 mg/dl (0.66-1.25) Glomerular Filtration Rate Calc > 60.0 Random Glucose 108 mg/dl (75-110) Calcium Level 9.2 mg/dl (8.4-10.2) Magnesium Level 2.0 mg/dl (1.7-2.2) Total Bilirubin 0.7 mg/dl (0.2-1.3) Aspartate Amino Transf (AST/SGOT) 67 U/L (0-35) Alanine Aminotransferase (ALT/SGPT) 107 U/L (0-56) Alkaline Phosphatase 94 U/L (0-126) Troponin I < 0.012 ng/ml B-Type Natriuretic Peptide 9 pg/ml (0-100) Total Protein 8.7 g/dl (6.3-8.2) Albumin 4.8 g/dl (3.5-5.0) Serum Alcohol 319 mg/dl Urine Color Yellow Urine Clarity Clear Urine pH 7.0 pH (4.8-9.5) Urine Specific [place] 1.006 Urine Protein 30 mg/dL (NEGATIVE) Urine Glucose (UA) Negative mg/dL (NEGATIVE) Urine Ketones Negative mg/dL (NEGATIVE) Urine Blood Negative (NEGATIVE) Urine Nitrite Negative (NEGATIVE) Urine Bilirubin Negative (NEGATIVE) Urine Urobilinogen Negative mg/dL (0.2-1.9) Urine Leukocyte Esterase Negative (NEGATIVE) Urine RBC None /HPF (0-2/HPF) Urine WBC <1 /HPF (0-5/HPF) Urine Squamous Epithelial Cells None /LPF (</=FEW) Urine Bacteria Negative /HPF (NONE-FEW) Urine Mucus None /HPF (NONE-FEW) Urine Opiates Screen Negative Urine Barbiturates Screen Negative Ur Tricyclic Antidepressants Screen Negative Urine Phencyclidine Screen Negative Urine Amphetamines Screen Negative Urine Benzodiazepines Screen Negative Urine Cocaine Screen Negative Urine Cannabinoids Screen Negative Chemistry Test 04/07/18 18:00 04/07/18 19:02 White Blood Count 5.9 k/uL (4.5-11.0) Red Blood Count 5.59 M/uL (4.00-5.60) Hemoglobin 18.6 g/dL (14.0-18.0) Hematocrit 51.7 % (42.0-52.0) Mean Corpuscular Volume 92.5 fL (80.0-96.0) Mean Corpuscular Hemoglobin 33.2 pg (26.0-33.0) Mean Corpuscular Hemoglobin Concent 35.9 g/dL (32.0-36.0) Red Cell Distribution Width 15.5 % (11.5-14.5) Platelet Count 271 K/uL (150-450) Mean Platelet Volume 6.7 fL (7.2-11.1) Neutrophils (%) (Auto) 66.8 % (39.4-72.5) Lymphocytes (%) (Auto) 23.9 % (17.6-49.6) Monocytes (%) (Auto) 7.2 % (4.1-12.4) Eosinophils (%) (Auto) 1.5 % (0.4-6.7) Basophils (%) (Auto) 0.6 % (0.3-1.4) Nucleated RBC Relative Count (auto) 0.1 /100WBC Neutrophils # (Auto) 3.9 K/uL (2.0-7.4) Lymphocytes # (Auto) 1.4 K/uL (1.3-3.6) Monocytes # (Auto) 0.4 K/uL (0.3-1.0) Eosinophils # (Auto) 0.1 K/uL (0.0-0.5) Basophils # (Auto) 0.0 K/uL (0.0-0.1) Nucleated RBC Absolute Count (auto) 0.00 K/uL Prothrombin Time 12.7 seconds (12.0-14.4) Prothromb Time International Ratio 0.95 Activated Partial Thromboplast Time 25 seconds (23-35) D-Dimer Quantitative (PE/DVT) 0.54 ug/ml (0-0.50) Glomerular Filtration Rate Calc > 60.0 Calcium Level 9.2 mg/dl (8.4-10.2) Magnesium Level 2.0 mg/dl (1.7-2.2) Total Bilirubin 0.7 mg/dl (0.2-1.3) Aspartate Amino Transf (AST/SGOT) 67 U/L (0-35) Alanine Aminotransferase (ALT/SGPT) 107 U/L (0-56) Alkaline Phosphatase 94 U/L (0-126) Troponin I < 0.012 ng/ml B-Type Natriuretic Peptide 9 pg/ml (0-100) Total Protein 8.7 g/dl (6.3-8.2) Albumin 4.8 g/dl (3.5-5.0) Serum Alcohol 319 mg/dl Urine Color Yellow Urine Clarity Clear Urine pH 7.0 pH (4.8-9.5) Urine Specific [place] 1.006 Urine Protein 30 mg/dL (NEGATIVE) Urine Glucose (UA) Negative mg/dL (NEGATIVE) Urine Ketones Negative mg/dL (NEGATIVE) Urine Blood Negative (NEGATIVE) Urine Nitrite Negative (NEGATIVE) Urine Bilirubin Negative (NEGATIVE) Urine Urobilinogen Negative mg/dL (0.2-1.9) Urine Leukocyte Esterase Negative (NEGATIVE) Urine RBC None /HPF (0-2/HPF) Urine WBC <1 /HPF (0-5/HPF) Urine Squamous Epithelial Cells None /LPF (</=FEW) Urine Bacteria Negative /HPF (NONE-FEW) Urine Mucus None /HPF (NONE-FEW) Urine Opiates Screen Negative Urine Barbiturates Screen Negative Ur Tricyclic Antidepressants Screen Negative Urine Phencyclidine Screen Negative Urine Amphetamines Screen Negative Urine Benzodiazepines Screen Negative Urine Cocaine Screen Negative Urine Cannabinoids Screen Negative Coagulation Test 04/07/18 18:00 Prothrombin Time 12.7 seconds Prothromb Time International Ratio 0.95 Activated Partial Thromboplast Time 25 seconds D-Dimer Quantitative (PE/DVT) 0.54 ug/ml Toxicology Test 04/07/18 18:00 04/07/18 19:02 Serum Alcohol 319 mg/dl Urine Opiates Screen Negative Urine Barbiturates Screen Negative Ur Tricyclic Antidepressants Screen Negative Urine Phencyclidine Screen Negative Urine Amphetamines Screen Negative Urine Benzodiazepines Screen Negative Urine Cocaine Screen Negative Urine Cannabinoids Screen Negative Urinalysis Test 04/07/18 19:02 Urine Color Yellow Urine Clarity Clear Urine pH 7.0 pH (4.8-9.5) Urine Specific [place] 1.006 Urine Protein 30 mg/dL (NEGATIVE) Urine Glucose (UA) Negative mg/dL (NEGATIVE) Urine Ketones Negative mg/dL (NEGATIVE) Urine Blood Negative (NEGATIVE) Urine Nitrite Negative (NEGATIVE) Urine Bilirubin Negative (NEGATIVE) Urine Urobilinogen Negative mg/dL (0.2-1.9) Urine Leukocyte Esterase Negative (NEGATIVE) Urine RBC None /HPF (0-2/HPF) Urine WBC <1 /HPF (0-5/HPF) Urine Squamous Epithelial Cells None /LPF (</=FEW) Urine Bacteria Negative /HPF (NONE-FEW) Urine Mucus None /HPF (NONE-FEW) EKG/Imaging EKG Interpretation 12 lead EK Rhythm: Sinus tachycardia, rate 121 bpm Echo: normal QRS: normal ST segments: Nonspecific T wave changes, slow R-wave progression in the V leads. Comparison to previous EKG dated 09/21/17, no significant change. ED Course/Re-evaluation Clinical Indication for ER IV: Hydration, IV Access ED Course Patient was admitted to an examination room. H&P was done. The differential diagnoses was considered. On clinical examination. Patient's having chest pain, left flank pain and hematuria. Patient's diagnostic studies are unremarkable. His blood alcohol returns at 319. He's medicated with Ativan 2 mg IV. He is tachycardic in the 120s. His heart rate slows to 100. His urinalysis shows no red blood cells at all. Patient's LFTs are mildly elevated, consistent with his alcoholism. They're similar to her that were back in September. Patient's discharged home. He has a history of a cyst in his bladder, which he never had it investigated by urology. This was several years ago down in the [place] area. Patient's advised to follow-up with urology if he has continued hematuria. He should follow up anyways for repeat urinalysis. Information for Dr. Del Cid. Dr. Duff were provided. Decision to Disposition Date: Apr 07, 2018 Decision to Disposition Time: 19:36 Depart Departure Latest Vital Signs Vital Signs Date Time Temp Pulse Resp B/P (MAP) Pulse Ox O2 Delivery O2 Flow Rate FiO2 04/07/18 19:46 ??? 04/07/18 19:45 121/90 (100) 04/07/18 19:31 94 04/07/18 19:30 97.6 04/07/18 19:01 18 04/07/18 17:48 Room Air Core Temperature (Celsius): 36.34 Impression: Primary Impression: Hematuria Additional Impressions: Alcohol intoxication Abnormal LFTs Chronic alcoholism Condition: Improved Disposition: HOME OR SELF-CARE Referrals: ALBERTO DUFF MD, LYLE MD Patient Instructions: Hematuria (ED) Additional Instructions: Follow-up with Dr. Duff or Dr. Jasso urologists for further evaluation Problem Qualifiers Primary Impression: Hematuria Hematuria type: unspecified type Qualified Codes: R31.9 - Hematuria, unspecified Additional Impressions: Alcohol intoxication Complication of substance-induced condition: uncomplicated Qualified Codes: F10.920 - Alcohol use, unspecified with intoxication, uncomplicated SUNDEEP ALDANA DO Apr 07, 2018 18:02
[2018-04-07 18:13] LABS: PLATELET COUNT, AUTOMATED 271 K/uL (150-450)
[2018-04-07 18:19] LABS: INR 0.95
[2018-04-07 19:45] VITALS: BP 121/90
== END 2018-04-07 19:55 | disposition home or self-care (01) ==
LOC: ER 18:00
DX: R31.9 Hematuria, unspecified (principal); F10.20 Alcohol dependence, uncomplicated; R79.89 Other specified abnormal findings of blood chemistry; R06.02 Shortness of breath
CPT/HCPCS: 80305; 80320; 81001; 83735; 83880; 84484; 85025; 85379; 85610; 85730; 93005; 96365; 96375; 99283; J2060; J3411; J3475; J7030; 82040; 82247; 82310; 82374; 82435; 82565; 82947; 84075; 84132; 84155; 84295; 84450; 84460; 84520

== ENCOUNTER → 2018-04-09 | Outpatient (CLI) | payer SELFPAY ==
[2017-09-22 08:30] VITALS: BMI 28.6
[~2018-04-09] MED LIST changes: +IOPAMIDOL 76% 50 ML INFUS BTL 50 ML ONE
--- NOTE | 2018-04-09 16:10 | RADIOLOGY IMAGING REPORT ---
FACILITY: [facility] PATIENT NAME: Chilo Yates : 05/09/1983 MR: [id number] V: [id number] EXAM DATE: ORDERING PHYSICIAN: ALBERTO DUFF TECHNOLOGIST: [facility] Patient: Chilo Yates : 05/09/1983 Visit/Account:[id number] Date of Sevice: 04/09/2018 EXAMINATION: CT abdomen and pelvis without and with IV contrast HISTORY: Gross hematuria. Left flank pain. TECHNIQUE: Axial CT images of the abdomen and pelvis were initially obtained without IV contrast. Axial CT imag es of the abdomen and pelvis were then obtained with IV contrast, utilizing a split bolus technique w ith combined nephrographic and excretory delayed imaging performed at 8 minutes. Coronal and sagitta l 2D reconstructed images were obtained and 3D coronal MIP images. One of the following dose optimization techniques was utilized in the performance of this exam: Autom ated exposure control; adjustment of the mA and/or kV according to the patient's size; or use of an i terative reconstruction technique. Specific details can be referenced in the facility's radiology C T exam operational policy. Contrast: 125 mL of IV [id number]. COMPARISON: None. FINDINGS: Right kidney and ureter: No urinary calculi. Normal size and morphology of the right kidney, measurin g 10.1 cm in length. The right kidney enhances normally. No focal solid or cystic renal mass. No hydr onephrosis. The right intrarenal collecting system and ureter are unremarkable, without dilatation, w all thickening or abnormal filling defect. Left kidney and ureter: No urinary calculi. Normal size and morphology of the left kidney, measuring 11.0 cm in length. The left kidney enhances normally. No focal solid or cystic renal mass. No hydrone phrosis. The left intrarenal collecting system and ureter are unremarkable, without dilatation, wall thickening, or abnormal filling defect. Urinary bladder: Well-distended and unremarkable by CT. No wall thickening or focal mass. Liver: Fatty infiltration of the liver. Gallbladder and bile ducts: Negative. Spleen: Negative. Pancreas: Negative. Adrenal glands: Negative. Bowel and peritoneum: The small bowel and colon are normal in caliber, without evidence of obstructi on or any focal inflammatory process. Normal appendix. No free fluid or free intraperitoneal air. Lymph node assessment: Negative. Vessels: Negative. Musculoskeletal: No acute osseous findings. Chronic bilateral L5 spondylolysis, without spondylolis thesis. Body wall: Negative. Lung bases: Negative. IMPRESSION: 1. The kidneys, collecting systems, and bladder are unremarkable by CT. No urinary calculi or hydrone phrosis. No source of hematuria or left flank pain is identified. 2. No other acute intra-abdominal findings. 3. Hepatic steatosis. Report Dictated By: Constantino Milan MD at 04/09/2018 3:58 PM Report E-Signed By: Constantino Milan MD at 04/09/2018 4:07 PM [id number]
== END ==
LOC: CT 15:04
DX: K76.0 Fatty (change of) liver, not elsewhere classified (principal); R31.0 Gross hematuria; R10.9 Unspecified abdominal pain
CPT/HCPCS: 74178; 81001; 87088; Q9967

== ENCOUNTER 2018-04-28 19:43 | Emergency (ER) | payer SELFPAY ==
[2017-09-22 08:30] VITALS: BMI 28.6
[~2018-04-28 19:43] MED LIST changes: -IOPAMIDOL 76% 50 ML INFUS BTL 50 ML ONE
--- NOTE | 2018-04-28 19:53 | ER Report ---
History and Physical Time Seen By MD: 19:53 HPI/ROS CHIEF COMPLAINT: Detox HISTORY OF PRESENT ILLNESS: This is a 34-year-old male, who presents to the emergency department with his fiance for detox. Patient states that he has a long-standing history of alcohol abuse, over the last several days he's been trying to wean himself off of vodka using beer and drinking small shots of vodka. Patient denies narcotic abuse at this time, states his last drink was probably about 30 minutes to an hour prior to arrival. Unsure exactly how much he's been drinking. Patient states he does want to go to the behavioral health unit for detox. Patient is tearful. He also states that he's had intermittent auditory and visual hallucinations with intermittent shakes. He states he has been down this road before and has a history of suicidal thoughts, he denies suicidal ideations at this time. No hallucinations at this time. No recent fevers or chills. No chest pain or shortness of breath. No other complaints. He has had a few episodes of emesis and diarrhea, no blood noted. REVIEW OF SYSTEMS: Constitutional: No fever, no chills. Eyes: No discharge. ENT: No sore throat. Cardiovascular: No chest pain, no palpitations. Respiratory: No cough, no shortness of breath. Gastrointestinal: As above. Genitourinary: No hematuria. Musculoskeletal: No back pain. Skin: No rashes. Neurological: No headache. Psych: As above. Allergies: Coded Allergies: Penicillins (Verified Allergy, Unknown, 04/28/18) amoxicillin (Verified Allergy, Unknown, 04/28/18) Uncoded Allergies: SHELLFISH (Allergy, Mild, 09/22/17) UNCOOKED FRUIT (Allergy, Mild, 09/22/17) Home Meds No Active Prescriptions or Reported Meds Past Medical/Surgical History The patient has a past medical and surgical history of seizures, secondary to alcohol detox, migraines, "heart attack", hypertension, ulcers, fractures of fingers and toes, PE tubes in ears, hearing loss, narcotic to use and abuse, PTSD, anxiety, depression, suicidal deviation, suicide attempt. Reviewed Nurses Notes: Yes Exposure to Second Hand Smoke?: No Hx Substance Use Disorder: Yes (when he was a teenager he reported some drug use) Hx Alcohol Use: Yes Constitutional Vital Sign - Last 24 Hours 04/28/18 04/28/18 04/28/18 04/28/18 19:48 19:49 20:00 20:13 Temp 98.7 Pulse 106 99 Resp 15 18 B/P (MAP) 153/114 (127) 153/114 125/100 (108) Pulse Ox 93 92 O2 Delivery Room Air 04/28/18 04/28/18 04/28/18 04/28/18 20:30 20:35 21:00 21:05 Pulse 95 88 Resp 11 18 B/P (MAP) 128/89 (102) 123/88 (100) Pulse Ox 93 91 Physical Exam General Appearance: The patient is alert, has no immediate need for airway protection and no signs of toxicity, slurring words. Eyes: Pupils equal and round no pallor or injection. ENT, Mouth: Mucous membranes are moist. Has a chew in his right lower cheek. Respiratory: There are no retractions, lungs are clear to auscultation. Cardiovascular: Regular rate and rhythm. Gastrointestinal: Abdomen is soft and non tender, no masses, bowel sounds normal. Neurological: Alert and oriented 4. Moving all extremities. Following all commands. No focal neuro deficits. Skin: Warm and dry, no rashes. Musculoskeletal: Neck is supple non tender. Extremities are nontender, nonswollen and have full range of motion. DIFFERENTIAL DIAGNOSIS: After history and physical exam differential diagnosis was considered for alcohol detox, suicidal ideation, anxiety and depression. Medical Decision Making Data Points Result Diagram: 04/28/18199904/28/181999 Laboratory Hematology Test 04/28/18 20:00 04/28/18 20:26 Red Blood Count 5.61 M/uL (4.00-5.60) Mean Corpuscular Volume 94.3 fL (80.0-96.0) Mean Corpuscular Hemoglobin 33.2 pg (26.0-33.0) Mean Corpuscular Hemoglobin Concent 35.2 g/dL (32.0-36.0) Red Cell Distribution Width 15.7 % (11.5-14.5) Mean Platelet Volume 6.8 fL (7.2-11.1) Neutrophils (%) (Auto) 63.2 % (39.4-72.5) Lymphocytes (%) (Auto) 26.5 % (17.6-49.6) Monocytes (%) (Auto) 8.6 % (4.1-12.4) Eosinophils (%) (Auto) 1.2 % (0.4-6.7) Basophils (%) (Auto) 0.5 % (0.3-1.4) Nucleated RBC Relative Count (auto) 0.1 /100WBC Neutrophils # (Auto) 2.7 K/uL (2.0-7.4) Lymphocytes # (Auto) 1.1 K/uL (1.3-3.6) Monocytes # (Auto) 0.4 K/uL (0.3-1.0) Eosinophils # (Auto) 0.1 K/uL (0.0-0.5) Basophils # (Auto) 0.0 K/uL (0.0-0.1) Nucleated RBC Absolute Count (auto) 0.00 K/uL Sodium Level 141 mmol/L (137-145) Potassium Level 4.0 mmol/L (3.5-5.0) Chloride Level 101 mmol/L (98-107) Carbon Dioxide Level 26 mmol/L (22-30) Blood Urea Nitrogen 6 mg/dl (9-21) Creatinine 0.90 mg/dl (0.66-1.25) Glomerular Filtration Rate Calc > 60.0 Random Glucose 116 mg/dl (75-110) Calcium Level 8.7 mg/dl (8.4-10.2) Magnesium Level 2.0 mg/dl (1.7-2.2) Total Bilirubin 1.3 mg/dl (0.2-1.3) Aspartate Amino Transf (AST/SGOT) 172 U/L (0-35) Alanine Aminotransferase (ALT/SGPT) 136 U/L (0-56) Alkaline Phosphatase 82 U/L (0-126) Total Protein 8.4 g/dl (6.3-8.2) Albumin 4.4 g/dl (3.5-5.0) Salicylates Level < 10 mg/L Salicylate Last Dose Date unk Acetaminophen Level < 10 ug/ml Serum Alcohol 400 mg/dl Urine Color Yellow Urine Clarity Clear Urine pH 6.0 pH (4.8-9.5) Urine Specific [place] 1.005 Urine Protein 30 mg/dL (NEGATIVE) Urine Glucose (UA) Negative mg/dL (NEGATIVE) Urine Ketones Negative mg/dL (NEGATIVE) Urine Blood Negative (NEGATIVE) Urine Nitrite Negative (NEGATIVE) Urine Bilirubin Negative (NEGATIVE) Urine Urobilinogen Negative mg/dL (0.2-1.9) Urine Leukocyte Esterase Negative (NEGATIVE) Urine RBC <1 /HPF (0-2/HPF) Urine WBC <1 /HPF (0-5/HPF) Urine Squamous Epithelial Cells None /LPF (</=FEW) Urine Bacteria Negative /HPF (NONE-FEW) Urine Mucus None /HPF (NONE-FEW) Urine Opiates Screen Negative Urine Barbiturates Screen Negative Ur Tricyclic Antidepressants Screen Negative Urine Phencyclidine Screen Negative Urine Amphetamines Screen Negative Urine Benzodiazepines Screen Negative Urine Cocaine Screen Negative Urine Cannabinoids Screen Negative Chemistry Test 04/28/18 20:00 04/28/18 20:26 White Blood Count 4.3 k/uL (4.5-11.0) Red Blood Count 5.61 M/uL (4.00-5.60) Hemoglobin 18.6 g/dL (14.0-18.0) Hematocrit 52.9 % (42.0-52.0) Mean Corpuscular Volume 94.3 fL (80.0-96.0) Mean Corpuscular Hemoglobin 33.2 pg (26.0-33.0) Mean Corpuscular Hemoglobin Concent 35.2 g/dL (32.0-36.0) Red Cell Distribution Width 15.7 % (11.5-14.5) Platelet Count 220 K/uL (150-450) Mean Platelet Volume 6.8 fL (7.2-11.1) Neutrophils (%) (Auto) 63.2 % (39.4-72.5) Lymphocytes (%) (Auto) 26.5 % (17.6-49.6) Monocytes (%) (Auto) 8.6 % (4.1-12.4) Eosinophils (%) (Auto) 1.2 % (0.4-6.7) Basophils (%) (Auto) 0.5 % (0.3-1.4) Nucleated RBC Relative Count (auto) 0.1 /100WBC Neutrophils # (Auto) 2.7 K/uL (2.0-7.4) Lymphocytes # (Auto) 1.1 K/uL (1.3-3.6) Monocytes # (Auto) 0.4 K/uL (0.3-1.0) Eosinophils # (Auto) 0.1 K/uL (0.0-0.5) Basophils # (Auto) 0.0 K/uL (0.0-0.1) Nucleated RBC Absolute Count (auto) 0.00 K/uL Glomerular Filtration Rate Calc > 60.0 Calcium Level 8.7 mg/dl (8.4-10.2) Magnesium Level 2.0 mg/dl (1.7-2.2) Total Bilirubin 1.3 mg/dl (0.2-1.3) Aspartate Amino Transf (AST/SGOT) 172 U/L (0-35) Alanine Aminotransferase (ALT/SGPT) 136 U/L (0-56) Alkaline Phosphatase 82 U/L (0-126) Total Protein 8.4 g/dl (6.3-8.2) Albumin 4.4 g/dl (3.5-5.0) Salicylates Level < 10 mg/L Salicylate Last Dose Date unk Acetaminophen Level < 10 ug/ml Serum Alcohol 400 mg/dl Urine Color Yellow Urine Clarity Clear Urine pH 6.0 pH (4.8-9.5) Urine Specific [place] 1.005 Urine Protein 30 mg/dL (NEGATIVE) Urine Glucose (UA) Negative mg/dL (NEGATIVE) Urine Ketones Negative mg/dL (NEGATIVE) Urine Blood Negative (NEGATIVE) Urine Nitrite Negative (NEGATIVE) Urine Bilirubin Negative (NEGATIVE) Urine Urobilinogen Negative mg/dL (0.2-1.9) Urine Leukocyte Esterase Negative (NEGATIVE) Urine RBC <1 /HPF (0-2/HPF) Urine WBC <1 /HPF (0-5/HPF) Urine Squamous Epithelial Cells None /LPF (</=FEW) Urine Bacteria Negative /HPF (NONE-FEW) Urine Mucus None /HPF (NONE-FEW) Urine Opiates Screen Negative Urine Barbiturates Screen Negative Ur Tricyclic Antidepressants Screen Negative Urine Phencyclidine Screen Negative Urine Amphetamines Screen Negative Urine Benzodiazepines Screen Negative Urine Cocaine Screen Negative Urine Cannabinoids Screen Negative Toxicology Test 04/28/18 20:00 04/28/18 20:26 Salicylates Level < 10 mg/L Salicylate Last Dose Date unk Acetaminophen Level < 10 ug/ml Serum Alcohol 400 mg/dl Urine Opiates Screen Negative Urine Barbiturates Screen Negative Ur Tricyclic Antidepressants Screen Negative Urine Phencyclidine Screen Negative Urine Amphetamines Screen Negative Urine Benzodiazepines Screen Negative Urine Cocaine Screen Negative Urine Cannabinoids Screen Negative Urinalysis Test 04/28/18 20:26 Urine Color Yellow Urine Clarity Clear Urine pH 6.0 pH (4.8-9.5) Urine Specific [place] 1.005 Urine Protein 30 mg/dL (NEGATIVE) Urine Glucose (UA) Negative mg/dL (NEGATIVE) Urine Ketones Negative mg/dL (NEGATIVE) Urine Blood Negative (NEGATIVE) Urine Nitrite Negative (NEGATIVE) Urine Bilirubin Negative (NEGATIVE) Urine Urobilinogen Negative mg/dL (0.2-1.9) Urine Leukocyte Esterase Negative (NEGATIVE) Urine RBC <1 /HPF (0-2/HPF) Urine WBC <1 /HPF (0-5/HPF) Urine Squamous Epithelial Cells None /LPF (</=FEW) Urine Bacteria Negative /HPF (NONE-FEW) Urine Mucus None /HPF (NONE-FEW) ED Course/Re-evaluation ED Course The patient was admitted to a room. A history and physical were obtained. Differential diagnoses were considered. An IV was started. A 1 L normal saline banana bag was given. CBC, CMP and behavior health studies were obtained. H&H 18.6 and 52.9.Chemistry showing AST 172, ALT 136, serum alcohol 400, negative tox screen, negative urine. I did review the results with the patient. Patient is resting comfortably. I did speak with Dr. Hinkle as noted below, patient will be admitted to behavioral health unit for detox. Patient is not actively having auditory or visual hallucinations. He is not tremulous, vital signs are stable. 04/28/2018 9:03:04 pm I did speak with Dr. Hinkle regarding the patient's case, he has accepted the patient in the behavioral health unit. Patient is resting comfortably right now, his banana bag is infusing. Patient will be admitted to [facility]. Patient did sign in. Decision to Disposition Date: Apr 28, 2018 Decision to Disposition Time: 20:58 Depart Departure Latest Vital Signs Vital Signs Date Time Temp Pulse Resp B/P (MAP) Pulse Ox O2 Delivery O2 Flow Rate FiO2 04/28/18 21:05 88 18 91 04/28/18 21:00 123/88 (100) 04/28/18 19:49 98.7 Room Air Core Temperature (Celsius): 36.34 Impression: Primary Impression: Desire for detoxification Additional Impressions: Alcohol intoxication Chronic alcoholism Condition: Improved Disposition: XFER TO [facility] New Scripts No Active Prescriptions or Reported Meds Problem Qualifiers Additional Impressions: Alcohol intoxication Complication of substance-induced condition: with unspecified complication Qualified Codes: F10.929 - Alcohol use, unspecified with intoxication, unspecified VLAD CARLSON [employer]-BC Apr 28, 2018 19:53
[2018-04-28] MEDS ORDERED: THIAMINE HCL(*) 200 MG/2 ML IN 100 MG, FOLIC ACID(*) 50 MG/10 ML INJ 1 MG, MULTIVITAMIN... IV ONE (19:59)
[2018-04-28 20:12] LABS: PLATELET COUNT, AUTOMATED 220 K/uL (150-450)
[2018-04-28] MEDS ORDERED: ONDANSETRON 4 MG/2 ML VIAL IVP ONE (20:15)
[2018-04-28 21:30] VITALS: BP 106/75
[2018-04-28] MEDS ORDERED: ONDANSETRON 4 MG/2 ML VIAL ONE (21:41)
== END 2018-04-28 21:45 ==
LOC: ER 20:22
DX: F10.220 Alcohol dependence with intoxication, uncomplicated (principal)
CPT/HCPCS: 80305; 80320; 80329; 81001; 83735; 84443; 85025; 96365; 96375; 96376; 99284; J2405; J3411; J3475; J7030; 82040; 82247; 82310; 82374; 82435; 82565; 82947; 84075; 84132; 84155; 84295; 84450; 84460; 84520

== ENCOUNTER 2018-04-28 21:29 | Inpatient (IN) | payer SELFPAY ==
[2017-09-22 08:30] VITALS: Ht 175.3 cm; Wt 79.4 kg
[~2018-04-28] VITALS: Ht 175.3 cm; Wt 79.4 kg
[2018-04-28 21:50] VITALS: BP 120/90
[2018-04-28] MEDS ORDERED: MAG HYD/AL HYD/SIMETH 30ML UDC PO PRN (21:50)
[2018-04-28] MEDS: DIAZEPAM 10 MG TAB PO PRN ×2 (22:25→23:19)
[2018-04-28] MEDS: NICOTINE 21 MG/24 HR PATCH TD SCH (22:27)
[2018-04-29] VITALS (9 sets, daily range): BP systolic 103–126; BP diastolic 66–86
[2018-04-29] MEDS: DIAZEPAM 10 MG TAB PO PRN ×12 (00:20→21:03)
[2018-04-29] MEDS: MULTIVITAMINS TAB PO SCH (08:10)
[2018-04-29] MEDS: FOLIC ACID 1 MG TAB PO SCH (08:10)
[2018-04-29] MEDS: NICOTINE 21 MG/24 HR PATCH TD SCH (08:10)
[2018-04-29] MEDS: THIAMINE HCL 100 MG TAB PO SCH (08:10)
[2018-04-29] MEDS: PATCH REMOVAL 1 EA TP SCH (21:02)
[2018-04-30 02:25] VITALS: BP 108/70
[2018-04-30 06:37] VITALS: BP 110/82
[2018-04-30] MEDS: MULTIVITAMINS TAB PO SCH (08:13)
[2018-04-30] MEDS: THIAMINE HCL 100 MG TAB PO SCH (08:13)
[2018-04-30] MEDS: FOLIC ACID 1 MG TAB PO SCH (08:13)
[2018-04-30] MEDS: NICOTINE 21 MG/24 HR PATCH TD SCH (08:21)
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
[2018-04-30 10:30] VITALS: BP 108/70
[2018-04-30] MEDS ORDERED: LOPERAMIDE HCL 2 MG CAP PO PRN (11:15)
[2018-04-30] MEDS ORDERED: LOPERAMIDE HCL 2 MG CAP PO ONE (11:15)
--- NOTE | 2018-04-30 12:00 | BHS Progress Note ---
[facility] - Subjective Progress Notes Subjective Patient very pleasant and calm this AM. Alcohol withdrawal is actively being treated with diazepam, and is to be considered significant in nature. Mood okay overall, frustrated with alcoholism, and is contemplating entrance into residential rehab. No other concerns today. Suicidal Ideation: None Homicidal Ideation: None [facility] - Objective Physical Exam Vital Signs Vital Signs Date Time Temp Pulse Resp B/P (MAP) Pulse Ox O2 Delivery O2 Flow Rate FiO2 04/30/18 10:30 98.1 86 18 108/70 (83) 94 Room Air 04/29/18 03:00 2.0 Muscle Strength and Tone: WNL Gait and Station: Steady [facility] Medications Reviewed: Side Effects, Benefits of Medication, Risks Allergies Reviewed: Yes Mental Status Exam General Appearance: Casual, Well Groomed, Good Eye Contact, Cooperative, Polite, Good Interaction; No Psychomotor Agitation, No Psychomotor Retardation, No Bizarre Mannerisms, No Tics Speech: Clear, Spontaneous, Normal Rate, Normal Rhythm, Normal Volume, Normal Tone Mood: Dysthmic/Depressed (frustrated) Affect: Full and Appropriate, Calm; No Tearful, No Anxious, No Agitated Thought Process: Organized, Logical, Goal Directed; No Loose Associations, No Flight of Ideas Thought Content: No Suicidal Ideation, No Homicidal Ideation, No Delusions, No Auditory Halllucinations, No Visual Hallucinations, No Thought Broadcasting, No Ideas of Reference, No Obsessions, No Compulsions Sensorium: Clear Cognition: Alert & Oriented-Person, Alert & Oriented-Place, Alert & Oriented- Time, [id number]-Iuwnqksf-Loqgzmahi Memory: Immediate, Recent, Remote Intelligence: Average Insight Judgment: Fair (in the absence of alcohol use) [facility] Assessment and Plan Tfwk-[id number]-Aach Encounter Date: Apr 30, 2018 [id number] Encounter Time: 11:00 [facility] Plan: Necessary Precautions, Individual/Group Therapy, Admin/Titrate Meds, Educate Patient Tobacco Medications: Not Appropriate Condition Multpiple Antipsychotics Used: No Problems: (1) Alcohol use disorder, severe, in controlled environment Status: Chronic (2) Alcohol withdrawal Status: Acute Condition 1. continue treatment. 2. encourage entrance into rehab Problem Qualifiers (1) Alcohol withdrawal: Complication of substance-induced condition: uncomplicated Qualified Codes: F10.230 - Alcohol dependence with withdrawal, uncomplicated MANDI SALINAS MD Apr 30, 2018 11:59
[2018-04-30] MEDS: DIAZEPAM 10 MG TAB PO PRN (20:12)
[2018-04-30] MEDS: PATCH REMOVAL 1 EA TP SCH (20:13)
[2018-05-01 05:06] VITALS: BP 98/60
[2018-05-01] MEDS: FOLIC ACID 1 MG TAB PO SCH (08:12)
[2018-05-01] MEDS: MULTIVITAMINS TAB PO SCH (08:12)
[2018-05-01] MEDS: THIAMINE HCL 100 MG TAB PO SCH (08:12)
[2018-05-01] MEDS: NICOTINE 21 MG/24 HR PATCH TD SCH (08:13)
[2018-05-01 08:35] VITALS: BP 108/60
--- NOTE | 2018-05-01 10:50 | BHS Progress Note ---
[facility] - Subjective Progress Notes Subjective "Alright...I don''t feel the physical effects anymore and I don't crave it." Suicidal Ideation: None Homicidal Ideation: None [facility] - Objective Physical Exam Vital Signs Vital Signs 04/29/18 04/30/18 05/01/18 03:00 10:30 05:06 Temp 98.1 Pulse 72 Resp 18 B/P (MAP) 98/60 (73) Pulse Ox 95 O2 Delivery Room Air O2 Flow Rate 2.0 Muscle Strength and Tone: WNL Gait and Station: Steady [facility] Medications Reviewed: Side Effects, Benefits of Medication, Risks Allergies Reviewed: Yes Mental Status Exam General Appearance: Casual, Well Groomed, Good Eye Contact, Cooperative, Polite, Good Interaction; No Psychomotor Agitation, No Psychomotor Retardation, No Bizarre Mannerisms, No Tics Speech: Clear, Spontaneous, Normal Rate, Normal Rhythm, Normal Volume, Normal Tone Mood: Dysthmic/Depressed (frustrated) Affect: Full and Appropriate, Calm; No Tearful, No Anxious, No Agitated Thought Process: Organized, Logical, Goal Directed; No Loose Associations, No Flight of Ideas Thought Content: No Suicidal Ideation, No Homicidal Ideation, No Delusions, No Auditory Halllucinations, No Visual Hallucinations, No Thought Broadcasting, No Ideas of Reference, No Obsessions, No Compulsions Sensorium: Clear Cognition: Alert & Oriented-Person, Alert & Oriented-Place, Alert & Oriented- Time, Gcjwn-Rthxatja-Qtahmalaq Memory: Immediate, Recent, Remote Intelligence: Average Insight Judgment: Fair (in the absence of alcohol use) [facility] Assessment and Plan Nuex-yv-Lrez Encounter Date: May 01, 2018 Boza-[id number] Encounter Time: 10:30 [facility] Plan: Necessary Precautions, Individual/Group Therapy, Admin/Titrate Meds, Educate Patient Tobacco Medications: Not Appropriate Condition Multpiple Antipsychotics Used: No Problems: (1) Alcohol use disorder, severe, in controlled environment Status: Chronic ROSA ISELA DE LA ROSA NP May 01, 2018 10:49
[2018-05-01] MEDS ORDERED: hydrOXYzine PAMOATE 25 MG CAP PO PRN (10:55)
[2018-05-01 16:45] VITALS: BP 120/82
[2018-05-01] MEDS ORDERED: NICOTINE CARTRIDGE 1 EA PO PRN (20:35)
[2018-05-01] MEDS ORDERED: NICOTINE INH SYSTEM 10 MG/INH INH PRN (20:35)
[2018-05-02 06:45] VITALS: BP 110/70
[2018-05-02] MEDS: FOLIC ACID 1 MG TAB PO SCH (08:33)
[2018-05-02] MEDS: MULTIVITAMINS TAB PO SCH (08:33)
[2018-05-02] MEDS: THIAMINE HCL 100 MG TAB PO SCH (08:33)
[2018-05-02] MEDS ORDERED: HYDR-4225 PO (09:14)
[2018-05-02] MEDS ORDERED: NIC10R INH (09:17)
--- NOTE | 2018-05-02 13:35 | DISCHARGE SUMMARY ---
DATE OF ADMISSION: April 28, 2018 DATE OF DISCHARGE: May 02, 2018 ATTENDING PRACTITIONER: Svetlana Cardona, Psychiatric Nurse Practitioner FINAL DIAGNOSES Alcohol use disorder, severe. REASON FOR ADMISSION This is a 34-year-old gentleman admitted to the Unit on a voluntary basis requesting alcohol detoxification. PHYSICAL EXAMINATION Client is denying withdrawal symptoms on the day or discharge. He is in no physical distress. Vital signs on the day of discharge: Temperature 98.2, pulse 69, blood pressure 110/70, oxygen saturation 96% on room air. Please see emergency room note for complete Review of Systems. LABORATORY STUDIES Refer to labs completed on admission. His blood alcohol level on admit was 400. MENTAL STATUS EXAM GENERAL APPEARANCE, BEHAVIOR AND ATTITUDE: 34-year-old male who appears his stated age. Grooming is within normal limits. He is polite, pleasant and cooperative. SPEECH: Clear, spontaneous and of normal rate, rhythm and volume. MOOD: Described as much better. AFFECT: Bright and rangeful, appropriate to content and situation. THOUGHT PROCESSES: Logical and goal-directed. No loose associations or flight of ideas. THOUGHT CONTENT: Client denies any suicidal thoughts. He denies any homicidal thoughts. He is free of any auditory or visual hallucinations. He denies ideas of reference, thought broadcasting, delusions, depression, obsessions or compulsions. SENSORIUM: Clear. COGNITION: He is alert and oriented to person, place, time and situation. MEMORY: Immediate, recent and remote grossly intact. INTELLIGENCE: Average, based upon interview. INSIGHT AND JUDGMENT: Good. He acknowledges that he has alcohol use disorder. He is reporting plan to follow up with and [facility] in order to help maintain his sobriety. TREATMENT Patient was monitored per the [facility] protocol and participated in individual and group therapy and psychoeducation. HOSPITAL COURSE Alcohol withdrawal was moderate and resolved appropriately during his stay. He has been pleasant and cooperative throughout the stay and maintained no suicidal thoughts. CONDITION OF PATIENT ON DISCHARGE He is considered stable and a minimal risk to himself and others, appropriate for outpatient management. DISPOSITION Patient is discharged to home. DISCHARGE MEDICATIONS Hydroxyzine 25 mg once daily at bedtime as needed for sleep. DISCHARGE INSTRUCTIONS He is to follow up with [facility] for initial intake. He plans to do this tomorrow, on Thursday. He is also recommended to follow up with for alcohol cessation support. The 24-hour Crisis Line number was provided should symptoms or problems return. The risks, benefits and alternatives of the above discharge plan were discussed with client. Inform consent was given to proceed with the above discharge plan by this competent patient. JASMYN
== END 2018-05-02 10:05 | disposition home or self-care (01) | DRG 897 ==
LOC: BHS 21:29
PROVIDERS: ADMIT Psychiatry & Neurology Psychiatry; ATTEND Psychiatry & Neurology Psychiatry
DX: F10.230 Alcohol dependence with withdrawal, uncomplicated (principal); F41.8 Other specified anxiety disorders; Y90.8 Blood alcohol level of 240 mg/100 ml or more; Z56.0 Unemployment, unspecified; Z81.1 Family history of alcohol abuse and dependence; Z81.8 Family history of other mental and behavioral disorders; Z88.0 Allergy status to penicillin; Z62.810 Personal history of physical and sexual abuse in childhood; Z62.811 Personal history of psychological abuse in childhood
CPT/HCPCS: Q0177

== ENCOUNTER 2018-12-14 11:01 | Inpatient (IN) | payer SELFPAY ==
[2017-09-22 08:30] VITALS: Ht 172.7 cm; Wt 74.4 kg
[~2018-12-14] VITALS: Ht 172.7 cm; Wt 74.4 kg
[~2018-12-14 11:01] MED LIST changes: +HYDR-4225 PO; +NIC10R INH
--- NOTE | 2018-12-14 11:11 | ER Report ---
History and Physical Time Seen By MD: 11:11 Hx. of Stated Complaint: ETOH WITHDRAWL. STATES MAYBE HAD A SEIZURE THIS MORNING. USUALLY STARTS DRINKING AT 0220 AND HAS A CONSTANT 2 DRINKS OF BOURBON EACH HOUR THROUGHOUT THE DAY HPI/ROS CHIEF COMPLAINT: Alcohol detox HISTORY OF PRESENT ILLNESS: 33-year-old male patient presents to emergency room with complaints of wanting to detox from alcohol. Patient states that he has been drinking heavily most of his adult life. He states that he has done treatment 3 previous times. Patient states that he does drink a large bottle of bourbon every 2 days. Patient states that today he did not have any this morning and is not sure but thinks he may have had a seizure. Patient states that he is concerned and wanted to come in to the emergency room for evaluation and admission to [facility] for alcohol detox. Patient states he's been nauseated and vomiting all morning. He denies having any chest pain or abdominal pain. Patient denies having any shortness of breath. Patient did have 2 shots mixed with water coming into the emergency room. REVIEW OF SYSTEMS: Respiratory: No cough, no dyspnea. Cardiovascular: No chest pain, no palpitations. Gastrointestinal: No vomiting, no abdominal pain. Musculoskeletal: No back pain. Allergies: Coded Allergies: Penicillins (Verified Allergy, Unknown, 12/14/18) amoxicillin (Verified Allergy, Unknown, 12/14/18) Uncoded Allergies: SHELLFISH (Allergy, Mild, 09/22/17) UNCOOKED FRUIT (Allergy, Mild, 09/22/17) Home Meds Discontinued Reported Medications Nicotine (NICOTROL) 10 Mg/Inh Ctr, 10 MG INH 05/02/18 Hydroxyzine Hcl (HYDROXYZINE HCL) 25 Mg Tablet, 25 MG PO QHS PRN for SLEEP, #30 1 Refill 05/02/18 Past Medical/Surgical History Patient has a past medical history of seizures, migraines, deformed aortic valve, hypertension, ulcers, fractures, substance abuse, alcohol abuse, PTSD, anxiety, depression, suicide attempt. Patient has a surgical history of tubes in ears as a child. Reviewed Nurses Notes: Yes Hx Smoking: No Exposure to Second Hand Smoke?: No Hx Substance Use Disorder: Yes (when he was a teenager he reported some drug use) Hx Alcohol Use: Yes Constitutional Vital Sign - Last 24 Hours 12/14/18 12/14/18 12/14/18 11:04 11:30 12:00 Temp 99.2 Pulse 112 90 89 Resp 1 B/P (MAP) 143/118 Pulse Ox 93 93 90 O2 Delivery Room Air Physical Exam General Appearance: The patient is alert, has no immediate need for airway protection and no current signs of toxicity. Respiratory: Chest is non tender, lungs are clear to auscultation. Cardiac: regular rate and rhythm Gastrointestinal: Abdomen is soft and non tender, no masses, bowel sounds normal. Musculoskeletal: Neck: Neck is supple and non tender. Extremities have full range of motion and are non tender. Skin: No rashes or lesions. DIFFERENTIAL DIAGNOSIS: After history and physical exam differential diagnosis was considered for alcohol withdrawal, alcohol detox, seizure secondary to alcohol withdrawal. Medical Decision Making Data Points Result Diagram: 12/14/18 1112 12/14/18 1112 Laboratory Hematology Test 12/14/18 11:12 12/14/18 12:30 Red Blood Count 5.06 M/uL (4.00-5.60) Mean Corpuscular Volume 102.0 fL (80.0-96.0) Mean Corpuscular Hemoglobin 35.3 pg (26.0-33.0) Mean Corpuscular Hemoglobin Concent 34.6 g/dL (32.0-36.0) Red Cell Distribution Width 12.9 % (11.5-14.5) Mean Platelet Volume 7.9 fL (7.2-11.1) Neutrophils (%) (Auto) 58.2 % (39.4-72.5) Lymphocytes (%) (Auto) 28.1 % (17.6-49.6) Monocytes (%) (Auto) 11.7 % (4.1-12.4) Eosinophils (%) (Auto) 1.2 % (0.4-6.7) Basophils (%) (Auto) 0.8 % (0.3-1.4) Nucleated RBC Relative Count (auto) 0.2 /100WBC Neutrophils # (Auto) 1.8 K/uL (2.0-7.4) Lymphocytes # (Auto) 0.9 K/uL (1.3-3.6) Monocytes # (Auto) 0.4 K/uL (0.3-1.0) Eosinophils # (Auto) 0.0 K/uL (0.0-0.5) Basophils # (Auto) 0.0 K/uL (0.0-0.1) Nucleated RBC Absolute Count (auto) 0.01 K/uL Sodium Level 137 mmol/L (137-145) Potassium Level 3.4 mmol/L (3.5-5.0) Chloride Level 93 mmol/L (98-107) Carbon Dioxide Level 26 mmol/L (22-30) Blood Urea Nitrogen < 2 mg/dl (9-21) Creatinine 0.80 mg/dl (0.66-1.25) Glomerular Filtration Rate Calc > 60.0 Random Glucose 107 mg/dl (75-110) Calcium Level 10.4 mg/dl (8.4-10.2) Magnesium Level 1.3 mg/dl (1.7-2.2) Total Bilirubin 2.6 mg/dl (0.2-1.3) Aspartate Amino Transf (AST/SGOT) 630 U/L (0-35) Alanine Aminotransferase (ALT/SGPT) 436 U/L (0-56) Alkaline Phosphatase 89 U/L (0-126) Total Protein 9.1 g/dl (6.3-8.2) Albumin 5.1 g/dl (3.5-5.0) Thyroid Stimulating Hormone (TSH) 1.80 uIU/ml (0.46-4.68) Salicylates Level < 10 mg/L Salicylate Last Dose Date unk Acetaminophen Level < 10 ug/ml Serum Alcohol 150 mg/dl Urine Color Yellow Urine Clarity Clear Urine pH 7.0 pH (4.8-9.5) Urine Specific [place] 1.010 Urine Protein Trace mg/dL (NEGATIVE) Urine Glucose (UA) Negative mg/dL (NEGATIVE) Urine Ketones Negative mg/dL (NEGATIVE) Urine Blood Negative (NEGATIVE) Urine Nitrite Negative (NEGATIVE) Urine Bilirubin Negative (NEGATIVE) Urine Urobilinogen 0.2 mg/dL (0.2-1.9) Urine Leukocyte Esterase Negative (NEGATIVE) Urine RBC None /HPF (0-2/HPF) Urine WBC 0-2 /HPF (0-5/HPF) Urine Squamous Epithelial Cells None /LPF (</=FEW) Urine Bacteria Negative /HPF (NONE-FEW) Urine Mucus None /HPF (NONE-FEW) Urine Opiates Screen Negative Urine Barbiturates Screen Negative Ur Tricyclic Antidepressants Screen Negative Urine Phencyclidine Screen Negative Urine Amphetamines Screen Negative Urine Benzodiazepines Screen Negative Urine Cocaine Screen Negative Urine Cannabinoids Screen Negative Chemistry Test 12/14/18 11:12 12/14/18 12:30 White Blood Count 3.1 k/uL (4.5-11.0) Red Blood Count 5.06 M/uL (4.00-5.60) Hemoglobin 17.8 g/dL (14.0-18.0) Hematocrit 51.6 % (42.0-52.0) Mean Corpuscular Volume 102.0 fL (80.0-96.0) Mean Corpuscular Hemoglobin 35.3 pg (26.0-33.0) Mean Corpuscular Hemoglobin Concent 34.6 g/dL (32.0-36.0) Red Cell Distribution Width 12.9 % (11.5-14.5) Platelet Count 146 K/uL (150-450) Mean Platelet Volume 7.9 fL (7.2-11.1) Neutrophils (%) (Auto) 58.2 % (39.4-72.5) Lymphocytes (%) (Auto) 28.1 % (17.6-49.6) Monocytes (%) (Auto) 11.7 % (4.1-12.4) Eosinophils (%) (Auto) 1.2 % (0.4-6.7) Basophils (%) (Auto) 0.8 % (0.3-1.4) Nucleated RBC Relative Count (auto) 0.2 /100WBC Neutrophils # (Auto) 1.8 K/uL (2.0-7.4) Lymphocytes # (Auto) 0.9 K/uL (1.3-3.6) Monocytes # (Auto) 0.4 K/uL (0.3-1.0) Eosinophils # (Auto) 0.0 K/uL (0.0-0.5) Basophils # (Auto) 0.0 K/uL (0.0-0.1) Nucleated RBC Absolute Count (auto) 0.01 K/uL Glomerular Filtration Rate Calc > 60.0 Calcium Level 10.4 mg/dl (8.4-10.2) Magnesium Level 1.3 mg/dl (1.7-2.2) Total Bilirubin 2.6 mg/dl (0.2-1.3) Aspartate Amino Transf (AST/SGOT) 630 U/L (0-35) Alanine Aminotransferase (ALT/SGPT) 436 U/L (0-56) Alkaline Phosphatase 89 U/L (0-126) Total Protein 9.1 g/dl (6.3-8.2) Albumin 5.1 g/dl (3.5-5.0) Thyroid Stimulating Hormone (TSH) 1.80 uIU/ml (0.46-4.68) Salicylates Level < 10 mg/L Salicylate Last Dose Date unk Acetaminophen Level < 10 ug/ml Serum Alcohol 150 mg/dl Urine Color Yellow Urine Clarity Clear Urine pH 7.0 pH (4.8-9.5) Urine Specific [place] 1.010 Urine Protein Trace mg/dL (NEGATIVE) Urine Glucose (UA) Negative mg/dL (NEGATIVE) Urine Ketones Negative mg/dL (NEGATIVE) Urine Blood Negative (NEGATIVE) Urine Nitrite Negative (NEGATIVE) Urine Bilirubin Negative (NEGATIVE) Urine Urobilinogen 0.2 mg/dL (0.2-1.9) Urine Leukocyte Esterase Negative (NEGATIVE) Urine RBC None /HPF (0-2/HPF) Urine WBC 0-2 /HPF (0-5/HPF) Urine Squamous Epithelial Cells None /LPF (</=FEW) Urine Bacteria Negative /HPF (NONE-FEW) Urine Mucus None /HPF (NONE-FEW) Urine Opiates Screen Negative Urine Barbiturates Screen Negative Ur Tricyclic Antidepressants Screen Negative Urine Phencyclidine Screen Negative Urine Amphetamines Screen Negative Urine Benzodiazepines Screen Negative Urine Cocaine Screen Negative Urine Cannabinoids Screen Negative Toxicology Test 12/14/18 11:12 12/14/18 12:30 Salicylates Level < 10 mg/L Salicylate Last Dose Date unk Acetaminophen Level < 10 ug/ml Serum Alcohol 150 mg/dl Urine Opiates Screen Negative Urine Barbiturates Screen Negative Ur Tricyclic Antidepressants Screen Negative Urine Phencyclidine Screen Negative Urine Amphetamines Screen Negative Urine Benzodiazepines Screen Negative Urine Cocaine Screen Negative Urine Cannabinoids Screen Negative Urinalysis Test 12/14/18 12:30 Urine Color Yellow Urine Clarity Clear Urine pH 7.0 pH (4.8-9.5) Urine Specific [place] 1.010 Urine Protein Trace mg/dL (NEGATIVE) Urine Glucose (UA) Negative mg/dL (NEGATIVE) Urine Ketones Negative mg/dL (NEGATIVE) Urine Blood Negative (NEGATIVE) Urine Nitrite Negative (NEGATIVE) Urine Bilirubin Negative (NEGATIVE) Urine Urobilinogen 0.2 mg/dL (0.2-1.9) Urine Leukocyte Esterase Negative (NEGATIVE) Urine RBC None /HPF (0-2/HPF) Urine WBC 0-2 /HPF (0-5/HPF) Urine Squamous Epithelial Cells None /LPF (</=FEW) Urine Bacteria Negative /HPF (NONE-FEW) Urine Mucus None /HPF (NONE-FEW) ED Course/Re-evaluation ED Course Patient was admitted to an exam room, history and physical were obtained. Differential diagnoses were considered. On examination lungs are clear, heart regular, abdomen was soft and tender in the right upper quadrant. An IV was started, the lab work for a behavioral health admission were done. The results did show that the patient had elevated liver enzymes, AST of 6:30, ALT of 480, alkaline phosphatase was unremarkable. Patient also had an elevated MCV of 102 and low platelets, 146. Urinalysis was unremarkable, patient had no other drugs in his system. I discussed the case with Dr. Treviño, psychiatrist, who felt patient would likely be better served being admitted to the medical floor and treated medically initially and then can go to behavioral health after his detox. I discussed the case with Dr. Tucker, hospitalist, who agreed to accept the patient for admission. Patient was starting to have some perceptive changes and so he did receive 1 mg of Ativan prior to admission. I discussed the plan with patient who verbalized understanding and agreement. Decision to Disposition Date: Dec 14, 2018 Decision to Disposition Time: 14:04 Depart Departure Latest Vital Signs Vital Signs Date Time Temp Pulse Resp B/P (MAP) Pulse Ox O2 Delivery O2 Flow Rate FiO2 12/14/18 12:00 89 90 12/14/18 11:04 99.2 1 143/118 Room Air Core Temperature (Celsius): 36.34 Impression: Primary Impression: Alcohol abuse Additional Impressions: Abnormal LFTs Alcohol withdrawal Condition: Condition Unchanged Disposition: Admitted from ER Problem Qualifiers Additional Impressions: Alcohol withdrawal Complication of substance-induced condition: with perceptual disturbance Qualified Codes: F10.232 - Alcohol dependence with withdrawal with perceptual disturbance AMY SZYMANSKI Dec 14, 2018 11:11
[2018-12-14] MEDS ORDERED: THIAMINE HCL(*) 200 MG/2 ML IN 100 MG, FOLIC ACID(*) 50 MG/10 ML INJ 1 MG, MULTIVITAMIN... IV ONE (11:17)
[2018-12-14] MEDS ORDERED: ONDANSETRON 4 MG/2 ML VIAL IVP ONE ×2 (11:20→12:45)
[2018-12-14 11:28] LABS: PLATELET COUNT, AUTOMATED 146 K/uL (150-450)
[2018-12-14] MEDS ORDERED: ONDANSETRON 4 MG ODT TABDP SL ONE (12:45)
[2018-12-14] MEDS ORDERED: LORazepam 2 MG/ML VIAL IVP ONE (13:50)
[2018-12-14 14:45] VITALS: BP 110/86
--- NOTE | 2018-12-14 15:24 | History & Physical ---
History of Present Illness Chief Complaint Detox History of Present Illness This patient presented to the emergency room requesting detox from alcohol. His last drink was less than 24hrs ago. He does report that he had passed out this morning. He denies any loss of bowel/bladder control. He has gone through detox last 7 months ago. History Problems: (1) Depression with suicidal ideation Status: Chronic (2) Chronic alcoholism Status: Chronic Home Meds Discontinued Reported Medications Nicotine (NICOTROL) 10 Mg/Inh Ctr, 10 MG INH 05/02/18 Hydroxyzine Hcl (HYDROXYZINE HCL) 25 Mg Tablet, 25 MG PO QHS PRN for SLEEP, #30 1 Refill 05/02/18 Allergies: Coded Allergies: Penicillins (Verified Allergy, Unknown, 12/14/18) amoxicillin (Verified Allergy, Unknown, 12/14/18) Uncoded Allergies: SHELLFISH (Allergy, Mild, 09/22/17) UNCOOKED FRUIT (Allergy, Mild, 09/22/17) Patient History: Alcoholism in family FATHER Anxiety disorder BROTHER OR SISTER BROTHER OR SISTER BROTHER OR SISTER FH: depression MOTHER FHx: suicide Uncle OCD (obsessive compulsive disorder) MOTHER Hx Smoking: No (4 ciagarettes/month, 1 can of tobacco every 3 days) Smoking Status: Current: Every Day Smoker Exposure to Second Hand Smoke?: No Caffeine Intake: Coffee, Tea, Soda Caffeine/Cups Per Day: 0 Hx Alcohol Use: Yes (2 pints of bourbon/day) Alcohol Use: Currently Alcohol Used: Liquor Alcohol Withdrawl Symptoms: Heart Racing, Nausea/Vomiting Hx Substance Use Disorder: Yes (when he was a teenager he reported some drug use) Social Drug Use: Former Social Drugs: Marijuana, Meth, Cocaine Review of Systems All Systems Reviewed/Normal: Yes Exam Vital Signs Vital Signs Date Time Temp Pulse Resp B/P (MAP) Pulse Ox O2 Delivery O2 Flow Rate FiO2 12/14/18 14:45 98.4 98 16 110/86 (94) 93 Room Air Neuro: No Gross deficits Eyes: PERRLA Cardiovascular: Regular Rate and Rhythm Respiratory: Clear to Auscultation GI: Abd Soft and Non-Tender Extremities: No Edema Integumentary: No Cyanosis Medical Decision Making Data Points Result Diagram: 12/14/18 1112 12/14/18 1112 Assessment and Plan Problems: (1) Alcohol withdrawal Status: Acute Assessment & Plan: He has been placed on CIWA protocol. Thiamine has also been ordered. (2) Alcoholic liver disease Assessment & Plan: Repeat LFT's are ordered for the morning. (3) Hypomagnesemia Assessment & Plan: Supplemental magnesium is ordered. Venous Thromboembolism Antithrombotics Is Pt On Any Antithrombotics?: No Exam Sepsis Risk: No Definite Risk Problem Qualifiers (1) Alcohol withdrawal: Complication of substance-induced condition: with perceptual disturbance Qualified Codes: F10.232 - Alcohol dependence with withdrawal with perceptual disturbance JANEE ARAGON DO Dec 14, 2018 15:24
[2018-12-14] MEDS ORDERED: LORazepam 2 MG/ML VIAL IM PRN (15:25)
[2018-12-14] MEDS ORDERED: MAGNESIUM SUL 50% 1GM/2ML VIAL IVP ONE (15:25)
[2018-12-14] MEDS ORDERED: LORazepam 2 MG/ML VIAL IVP PRN (15:25)
[2018-12-14] MEDS ORDERED: NS(*) 0.9% 250 ML BAG 250 ML ONE (15:52)
[2018-12-14 18:30] VITALS: BP 116/74
[2018-12-14] MEDS: LORazepam 1 MG TAB PO PRN ×2 (18:34→20:05)
[2018-12-14 19:08] VITALS: BP 115/83
[2018-12-14] MEDS ORDERED: PROMETHAZINE 25 MG/ML 1 ML AMP IVP PRN (19:30)
[2018-12-14 19:53] VITALS: BP 121/82
[2018-12-14] MEDS ORDERED: NICOTINE 14 MG/24 HR PATCH TD SCH (21:00)
[2018-12-14 21:09] VITALS: BP 120/77
[2018-12-14 23:45] VITALS: BP 117/87
[2018-12-15 04:09] VITALS: BP 115/80
[2018-12-15 06:31] LABS: PLATELET COUNT, AUTOMATED 96 K/uL (150-450)
[2018-12-15 07:27] VITALS: BP 118/85
[2018-12-15] MEDS: LORazepam 1 MG TAB PO PRN (07:34)
[2018-12-15] MEDS ORDERED: THIAMINE HCL 200 MG/2 ML INJ IVP SCH (09:00)
[2018-12-15 09:58] VITALS: BP 118/80
[2018-12-15] MEDS ORDERED: DIAZEPAM 10 MG TAB PO PRN ×2 (10:10)
[2018-12-15 11:58] VITALS: BP 117/86
[2018-12-15] MEDS ORDERED: INFLUENZA VIRUS VAC 0.5ML SYR IM ONLY ONE (15:25)
--- NOTE | 2018-12-15 19:34 | Hospitalist Depart ---
Discharge Summary Reason for Hosp/Final Diag: (1) Alcohol withdrawal Status: Acute Hospital Course & Plan: He was placed on CIWA and though still needing medications elected to leave ama. (2) Alcoholic liver disease Hospital Course & Plan: LFT elevated. (3) Hypomagnesemia Hospital Course & Plan: Supplemental magnesium was given, left AMA. Departure Weight (Pounds): 164 Result Diagram: 12/15/1855212/15/18552 Condition: No Change (left AMA) Discharge: Home (AMA) Discharge Instructions Home Meds Discontinued Reported Medications Nicotine (NICOTROL) 10 Mg/Inh Ctr, 10 MG INH 05/02/18 Hydroxyzine Hcl (HYDROXYZINE HCL) 25 Mg Tablet, 25 MG PO QHS PRN for SLEEP, #30 1 Refill 05/02/18 Diet: Regular Activity: As Tolerated Special Instructions: Patient left AMA and was still showing symptoms of EtOH withdrawal Venous Thromboembolism Antithrombotics Is Pt On Any Antithrombotics?: No Problem Qualifiers (1) Alcohol withdrawal: Complication of substance-induced condition: with perceptual disturbance Qualified Codes: F10.232 - Alcohol dependence with withdrawal with perceptual disturbance JEROMY GARCIA DO December 15, 2018 19:34
[2018-12-18] MEDS ORDERED: THIAMINE HCL 100 MG TAB PO SCH (09:00)
== END 2018-12-15 14:15 | disposition home health service (06) | DRG 897 ==
LOC: ER 11:06 → MED 14:03
PROVIDERS: ADMIT Family Medicine; ATTEND Family Medicine
DX: F10.232 Alcohol dependence with withdrawal with perceptual disturbance (principal); K70.9 Alcoholic liver disease, unspecified; E83.42 Hypomagnesemia; I10 Essential (primary) hypertension; F43.12 Post-traumatic stress disorder, chronic; F41.8 Other specified anxiety disorders; F17.210 Nicotine dependence, cigarettes, uncomplicated; Z91.5 Personal history of self-harm; Z88.0 Allergy status to penicillin; Y90.6 Blood alcohol level of 120-199 mg/100 ml
CPT/HCPCS: 36415; 80305; 80320; 80329; 81001; 82040; 82247; 82310; 82374; 82435; 82565; 82947; 83735; 84075; 84132; 84155; 84295; 84443; 84450; 84460; 84520; 85025; 96365; 96375; 99284; J2060; J2405; J3411; J3475; J7030; J7050; S0119

== ENCOUNTER 2019-02-04 11:03 | Emergency (ER) | payer SELFPAY ==
[2017-09-22 08:30] VITALS: Wt 83.9 kg
[2019-02-04 11:08] VITALS: BP 137/87
--- NOTE | 2019-02-04 11:14 | ER Report ---
History and Physical Time Seen By MD: 11:08 Hx. of Stated Complaint: COUGH FOR 2 WEEKS. GREEN/YELLOW SPUTUM HPI/ROS CHIEF COMPLAINT: Cough HISTORY OF PRESENT ILLNESS: This is a 33-year-old male who presents to the emergency department for cough. Patient states that he's had a semi-productive cough over the last 2 weeks, progressively getting worse over the last for 5 days. Subjectively he has had fevers over the last 2 days. He does not smoke he does use chewing tobacco. He is also recently quit drinking alcohol. Patient states that the coughing is so intense that he does have bouts of nausea, no vomiting. No rashes. No chest pain, denies shortness of breath. REVIEW OF SYSTEMS: Respiratory: As above. Cardiovascular: No chest pain, no palpitations. Gastrointestinal: No vomiting, no abdominal pain. Musculoskeletal: No back pain. Allergies: Coded Allergies: Penicillins (Verified Allergy, Unknown, 02/04/19) amoxicillin (Verified Allergy, Unknown, 02/04/19) Uncoded Allergies: SHELLFISH (Allergy, Mild, 09/22/17) UNCOOKED FRUIT (Allergy, Mild, 09/22/17) Home Meds Active Scripts Albuterol Sulfate (VENTOLIN HFA) 18 Gm Inh, 1-2 PUFF INH 3-4XD, #1 INH Prov:VLAD CARLSON [facility] 02/04/19 Prednisone (PREDNISONE) 20 Mg Tablet, 20 MG PO BID, #10 TAB Prov:VLAD CARLSON [facility] 02/04/19 Azithromycin 250 Mg Tab (AZITHROMYCIN 250 MG TAB) 250 Mg Tablet, 1 TAB PO QDAY, #6 TAB Take 2 tabs today and then 1 tab a day until gone. 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 Reviewed Nurses Notes: Yes Hx Smoking: No (4 ciagarettes/month, 1 can of tobacco every 3 days) Smoking Status: Current: Every Day Smoker Exposure to Second Hand Smoke?: No Hx Substance Use Disorder: Yes (when he was a teenager he reported some drug use) Hx Alcohol Use: Yes (2 pints of bourbon/day- NONE FOR 50 DAYS) Constitutional Vital Sign - Last 24 Hours 02/04/19 02/04/19 02/04/19 02/04/19 11:08 11:30 11:30 11:40 Temp 98.5 Pulse 53 85 89 101 Resp 20 12 12 B/P (MAP) 137/87 Pulse Ox 93 94 O2 Delivery Room Air 02/04/19 02/04/19 12:00 12:30 Pulse 99 Pulse Ox 94 93 Physical Exam General Appearance: The patient is alert, has no immediate need for airway protection and no current signs of toxicity. Eyes: Pupils equal and round no injection. Respiratory: Chest is non tender, diminished lung sounds in the right base, otherwise clear throughout. No wheezing. Dull to percussion to the right lower base. Cardiac: regular rate and rhythm, no murmurs, clicks or rubs. Gastrointestinal: Abdomen is soft and non tender, no masses, bowel sounds normal. Musculoskeletal: Neck: Neck is supple and non tender. Extremities have full range of motion and are non tender. Skin: No rashes or lesions. DIFFERENTIAL DIAGNOSIS: After history and physical exam differential diagnosis was considered for bronchitis, pneumonia, tuberculosis, viral syndrome, sinusitis. Medical Decision Making Data Points Result Diagram: 02/04/19 1115 02/04/19 1115 Laboratory Hematology Test 02/04/19 11:15 Red Blood Count 4.91 M/uL (4.00-5.60) Mean Corpuscular Volume 93.8 fL (80.0-96.0) Mean Corpuscular Hemoglobin 32.5 pg (26.0-33.0) Mean Corpuscular Hemoglobin Concent 34.7 g/dL (32.0-36.0) Red Cell Distribution Width 12.8 % (11.5-14.5) Mean Platelet Volume 8.5 fL (7.2-11.1) Neutrophils (%) (Auto) 67.8 % (39.4-72.5) Lymphocytes (%) (Auto) 18.7 % (17.6-49.6) Monocytes (%) (Auto) 12.4 % (4.1-12.4) Eosinophils (%) (Auto) 0.7 % (0.4-6.7) Basophils (%) (Auto) 0.4 % (0.3-1.4) Nucleated RBC Relative Count (auto) 0.0 /100WBC Neutrophils # (Auto) 3.6 K/uL (2.0-7.4) Lymphocytes # (Auto) 1.0 K/uL (1.3-3.6) Monocytes # (Auto) 0.7 K/uL (0.3-1.0) Eosinophils # (Auto) 0.0 K/uL (0.0-0.5) Basophils # (Auto) 0.0 K/uL (0.0-0.1) Nucleated RBC Absolute Count (auto) 0.00 K/uL Sodium Level 138 mmol/L (137-145) Potassium Level 4.0 mmol/L (3.5-5.0) Chloride Level 98 mmol/L (98-107) Carbon Dioxide Level 28 mmol/L (22-30) Blood Urea Nitrogen 7 mg/dl (9-21) Creatinine 0.90 mg/dl (0.66-1.25) Glomerular Filtration Rate Calc > 60.0 Random Glucose 104 mg/dl (75-110) Calcium Level 9.1 mg/dl (8.4-10.2) Total Bilirubin 0.8 mg/dl (0.2-1.3) Aspartate Amino Transf (AST/SGOT) 19 U/L (0-35) Alanine Aminotransferase (ALT/SGPT) 34 U/L (0-56) Alkaline Phosphatase 82 U/L (0-126) Total Protein 7.8 g/dl (6.3-8.2) Albumin 4.2 g/dl (3.5-5.0) Chemistry Test 02/04/19 11:15 White Blood Count 5.4 k/uL (4.5-11.0) Red Blood Count 4.91 M/uL (4.00-5.60) Hemoglobin 16.0 g/dL (14.0-18.0) Hematocrit 46.1 % (42.0-52.0) Mean Corpuscular Volume 93.8 fL (80.0-96.0) Mean Corpuscular Hemoglobin 32.5 pg (26.0-33.0) Mean Corpuscular Hemoglobin Concent 34.7 g/dL (32.0-36.0) Red Cell Distribution Width 12.8 % (11.5-14.5) Platelet Count 173 K/uL (150-450) Mean Platelet Volume 8.5 fL (7.2-11.1) Neutrophils (%) (Auto) 67.8 % (39.4-72.5) Lymphocytes (%) (Auto) 18.7 % (17.6-49.6) Monocytes (%) (Auto) 12.4 % (4.1-12.4) Eosinophils (%) (Auto) 0.7 % (0.4-6.7) Basophils (%) (Auto) 0.4 % (0.3-1.4) Nucleated RBC Relative Count (auto) 0.0 /100WBC Neutrophils # (Auto) 3.6 K/uL (2.0-7.4) Lymphocytes # (Auto) 1.0 K/uL (1.3-3.6) Monocytes # (Auto) 0.7 K/uL (0.3-1.0) Eosinophils # (Auto) 0.0 K/uL (0.0-0.5) Basophils # (Auto) 0.0 K/uL (0.0-0.1) Nucleated RBC Absolute Count (auto) 0.00 K/uL Glomerular Filtration Rate Calc > 60.0 Calcium Level 9.1 mg/dl (8.4-10.2) Total Bilirubin 0.8 mg/dl (0.2-1.3) Aspartate Amino Transf (AST/SGOT) 19 U/L (0-35) Alanine Aminotransferase (ALT/SGPT) 34 U/L (0-56) Alkaline Phosphatase 82 U/L (0-126) Total Protein 7.8 g/dl (6.3-8.2) Albumin 4.2 g/dl (3.5-5.0) EKG/Imaging Imaging PATIENT NAME: Chilo Yates : 1985 MR: [id number] V: [id number] EXAM DATE: ORDERING PHYSICIAN: VLAD CARLSON TECHNOLOGIST: Location: [facility] [place] Patient: Chilo Yates : 1985 Visit/Account:[id number] Date of Sevice: 02/04/2019 2 VIEWS CHEST INDICATION: Cough for two weeks. COMPARISON: 09/21/2017. FINDINGS: Cardiomediastinal silhouette and pulmonary vessels within normal limits. There is no focal infiltrate or lobar consolidation. There is no pneumothorax or pleural effusion. No nodule. Upper abdomen is unremarkable. No acute bony abnormality. IMPRESSION: 1. No acute cardiopulmonary process. Report Dictated By: Gaurang Rogers at 02/04/2019 1:36 PM Report E-Signed By: Gaurang Rogers at 02/04/2019 1:38 PM WSN:[email or web address] ED Course/Re-evaluation Clinical Indication for ER IV: IV Access ED Course Patient was admitted to room. A history and physical obtained. Differential diagnoses were considered. An IV was started. A CBC, CMP were obtained. Chest x- ray was negative for any acute pulmonary process. Lab studies unremarkable. A low the patient had no abnormalities today, with the progressively worsening symptoms over the last 2 weeks, changes in the amount of sputum with subjective fevers at home and based on my exam with diminished lung sounds on the right lower base and dullness to the right lower base on percussion, I did talk patient about treating for an atypical pneumonia, he was agreeable with this, I did send him home with a prescription for albuterol, prednisone and azithromycin. Patient expressed understanding, was agreeable with this plan care and discharged home. Decision to Disposition Date: Feb 04, 2019 Decision to Disposition Time: 12:44 Depart Departure Latest Vital Signs Vital Signs Date Time Temp Pulse Resp B/P (MAP) Pulse Ox O2 Delivery O2 Flow Rate FiO2 02/04/19 12:30 99 93 02/04/19 11:40 12 02/04/19 11:08 98.5 137/87 Room Air Core Temperature (Celsius): 36.34 Impression: Primary Impression: Atypical pneumonia Condition: Improved Disposition: HOME OR SELF-CARE New Scripts Albuterol Sulfate (VENTOLIN HFA) 18 Gm Inh 1-2 PUFF INH 3-4XD, #1 INH Prov: VLAD CARLSON [facility] 02/04/19 Prednisone (PREDNISONE) 20 Mg Tablet 20 MG PO BID, #10 TAB Prov: VLAD CARLSON [employer] 02/04/19 Azithromycin 250 Mg Tab (AZITHROMYCIN 250 MG TAB) 250 Mg Tablet 1 TAB PO QDAY, #6 TAB Take 2 tabs today and then 1 tab a day until gone. Prov: VLAD CARLSON 02/04/19 Patient Instructions: Bacterial Pneumonia (ED) Additional Instructions: Although your lab studies look okay and chest Xray is not showing an obvious pneumonia, you have had fevers at home, and worsening productive cough, your lung sounds were diminished on the right side, I will treat you as pneumonia. Take the medications as prescribed. Drink plenty of water. Get plenty of rest. Return to the ED for any other concerns or worsening symptoms. VLAD CARLSON-KAVITA Feb 04, 2019 11:14
[2019-02-04] MEDS ORDERED: ALBUTEROL/IPRATROPIUM 3 ML NEB NEB ONE (11:25)
[2019-02-04 11:30] LABS: PLATELET COUNT, AUTOMATED 173 K/uL (150-450)
[2019-02-04] MEDS ORDERED: PRED20TA6 PO (12:40)
[2019-02-04] MEDS ORDERED: ALB18R INH (12:40)
[2019-02-04] MEDS ORDERED: AZIT-18 PO (12:40)
--- NOTE | 2019-02-04 13:43 | RADIOLOGY IMAGING REPORT ---
FACILITY: [facility] - [place] PATIENT NAME: Chilo Yates : 1985 MR: [id number] V: [id number] EXAM DATE: ORDERING PHYSICIAN: VLAD CARLSON TECHNOLOGIST: Location: [facility] Patient: Chilo Yates : 1985 Visit/Account:[id number] Date of Sevice: 02/04/2019 2 VIEWS CHEST INDICATION: Cough for two weeks. COMPARISON: 09/21/2017. FINDINGS: Cardiomediastinal silhouette and pulmonary vessels within normal limits. There is no focal infiltrate or lobar consolidation. There is no pneumothorax or pleural effusion. No nodule. Upper abdomen is unremarkable. No acute bony abnormality. IMPRESSION: 1. No acute cardiopulmonary process. Report Dictated By: Gaurang Rogers at 02/04/2019 1:36 PM Report E-Signed By: Gaurang Rogers at 02/04/2019 1:38 PM WSN:[email or web address]
== END 2019-02-04 12:47 | disposition home or self-care (01) ==
LOC: ER 11:05
DX: J18.9 Pneumonia, unspecified organism (principal)
CPT/HCPCS: 71046; 85025; 94640; 99283; J7620; 82040; 82247; 82310; 82374; 82435; 82565; 82947; 84075; 84132; 84155; 84295; 84450; 84460; 84520